=== PATIENT | female | born 1995 | race African-American/Black ===

== ENCOUNTER 2020-12-09 17:00 | Emergency (ER) | payer OTHER, SELFPAY ==
[2020-12-09 17:00] VITALS: BP 138/73; PULSE 91; RESP 14; TEMP 36.5; O2SAT 99; BMI 42.0
--- NOTE | 2020-12-09 17:10 | ED_ITS ---
HPI - General Adult General Chief complaint: Neuro Symptoms/Deficit Stated complaint: states neurological episode Time Seen by Provider: 12/09/20 17:04 Source: patient Mode of arrival: Ambulatory Limitations: no limitations History of Present Illness HPI narrative: Patient is a 25-year-old female. Has a history of migraines. Also has a history of intracranial hypertension. She is on a daily migraine medicine and also has an abortive medicine. She states that 2 episodes over the past 2 days she does not remember a period of time. States that yesterday's approximately 30 minutes in today was approximately 45 minutes. She was talking on the phone at the time. She does have a slight headache. She did take 1 of her abortive medicines prior to arrival. She is also talk with her neurologist who thinks that her symptoms are related to her migraines. She has never had any seizures in the past. Related Data Allergies Allergy/AdvReac Type Severity Reaction Status Date / Time No Known Drug Allergies Allergy Verified 12/09/20 17:08 Review of Systems Constitutional Constitutional: Denies fever(s) and Reports headache(s) ENT Ears, Nose, Mouth, and Throat: Denies vertigo, Denies dizziness and Reports headache(s) Cardiovascular Cardiovascular: Denies chest pain and Denies dyspnea Respiratory Respiratory: Denies dyspnea Gastrointestinal Gastrointestinal: Denies abdominal pain, Denies nausea and Denies vomiting Integumentary/Breasts Skin/Breast: Denies rash Neurologic Neurologic: Reports confusion, Denies vertigo, Denies dizziness, Reports headache(s) and Reports memory loss Comments: Memory problems Psychiatric Psychiatric: Reports confusion, Denies depression and Reports memory loss Hematologic/Lymphatic Hematologic/Lymphatic: Denies easy bleeding and Denies easy bruising Allergic/Immunologic Allergic/Immunologic: Denies urticaria Patient History Medical History Intracranial hypertension Migraines Social History Smoking Status: Unknown if ever smoked Smoking Status: Unknown if ever smoked alcohol intake frequency: holidays/special occasions only Substance Use Type: does not use Exam Initial Vital Signs Initial Vital Signs: Vital Signs Temperature 97.7 F 12/09/20 17:00 Pulse Rate 91 H 12/09/20 17:00 Respiratory Rate 14 12/09/20 17:00 Blood Pressure 138/73 12/09/20 17:00 Pulse Oximetry 99 12/09/20 17:00 Const General: cooperative and comfortable Limitations: mental status not altered HENMT Head: normal to inspection and normocephalic Resp Effort & Inspection: normal respiratory effort Auscultation: clear to auscultation bilaterally Cardio Rate: regular rate Rhythm: regular rhythm GI Inspection: non-distended Palpation: soft Skin Lesions: no lesions Rashes: no rashes Neuro General: patient alert, patient awake and patient oriented x3 Cranial Nerves: CN's II-XI intact bilaterally Cognition: normal cognition Speech: speech normal Gait: normal gait Sensory Exam: no sensory deficits noted Extrem General: normal to inspection and capillary refill normal Psych Appearance: grossly normal and well kempt Scores GCS [place] coma scale eye opening: Spontaneous [place] coma scale verbal response: Orientated [place] coma scale motor response: Obey commands [place] coma scale total score: 15 Course Orders Ordered: ED Orders 12/09/20 17:10 CT head/brain wo con Stat 12/09/20 17:11 Basic Metabolic Panel Stat Complete Blood Count AUTO DIFF Stat Ethanol (ETOH) Stat EKG-12 Lead Stat Vital Signs Vital signs: Vital Signs - 8 hr 12/09/20 17:00 Temperature 97.7 F Pulse Rate 91 H Respiratory Rate 14 Blood Pressure 138/73 Pulse Oximetry 99 Medical Decision Making Lab Data Result diagrams: 12/09/20 17:21 12/09/20 17:21 Labs: Lab Results 12/09/20 12/09/20 Range/Units 17:21 17:21 WBC 7.8 (4.5-11.0) X10^3/uL RBC 4.33 (4.0-5.2) X10^6/uL Hgb 13.8 (12.0-16.0) g/dL Hct 41.0 (36-46) % MCV 94.6 (80-100) fL MCH 31.8 (26-34) PG MCHC 33.6 (30-36) % RDW 13.7 (11.6-14.8) % Plt Count 324 (150-400) X10^3/uL Neut % (Auto) 66.5 (50-75) % Lymph % (Auto) 25.7 (25-40) % [place] % (Auto) 6.0 (3-14) % Eos % (Auto) 1.6 L (2-4) % Baso % (Auto) 0.2 (0-2) % Neut # (Auto) 5200 (2652-5142) /uL Lymph # (Auto) 2000 (6123-5318) /uL [place] # (Auto) 500 (0-900) /uL Eos # (Auto) 100 (0-450) /uL Baso # (Auto) 0 (0-100) /uL Sodium 141 (137-145) mmol/L Potassium 3.4 (3.4-5.1) mmol/L Chloride 109 H (98-107) mmol/L Carbon Dioxide 23 (22-32) mmol/L BUN 12 (7-17) mg/dL Creatinine 1.07 H (0.52-1.04) mg/dL Estimated GFR > 60.0 (>60) mL/min BUN/Creatinine Ratio 11.2 (6-22) Glucose 105 H (70-100) mg/dL Calcium 9.5 (8.4-10.2) mg/dL Ethyl Alcohol < 10 ( - 10) mg/dL Imaging Data CT scan - head: Radiologist's Impression: [place] [id number] Scan ReportSigned Patient: Mari Hummel KMR#: [id number]: 1995Acct:[id number]/Sex: 25 / FDate of Service: 12/09/20Loc: EDAccession Number: [id number] Procedure: CT head/brain wo con Ordering Provider: Sourav Ocampo D.O. PROCEDURE: CT HEAD/BRAIN WO CON INDICATIONS: Headache and memory loss TECHNIQUE: Noncontrast 4.5 mm thick angled axial sections acquired from the foramen magnum to the vertex, with coronal and sagittal reformats. For radiation dose reduction, the following was used: automated exposure control, adjustment of mA and/or kV according to patient size. COMPARISON: None. FINDINGS: Image quality: Excellent. CSF spaces: Basal cisterns are patent. No extra-axial fluid collections. Ventricles are normal in size and shape. Brain: No midline shift. No intracranial masses or hemorrhage. Marquez-white matter interface is normal. Skull and face: Calvarium and visualized facial bones are intact, without suspicious lesions. Sinuses: Visualized sinuses and mastoids are clear. IMPRESSION: Normal noncontrast head CT, without an imaging explanation found for the patient's presenting symptoms. Dictated by: Ben Yanes M.D. on 12/09/2020 at 16:35 Approved by: Ben Yanes M.D. on 12/09/2020 at 16:35 ECG Data Attestation: I personally reviewed and interpreted this ECG as follows: Prior ECG tracings: not available for review Interpretation: Sinus rhythm Ventricular rate is 73 Normal axis Normal QRS Normal QTC No ST T wave changes MDM Narrative Medical decision making narrative: She has a nonfocal neurologic exam. Patient states that she has contacted her neurologist on the around here to the emergency department and she stated that her neurologist thought that it was most likely a migraine. I have low suspicion for seizure. Low suspicion for increased intracranial pressure. We will hold on further workup for now. Will have her continue all of her medications as directed. Contact her neurologist for follow-up. She is given return precautions. She expressed understanding a greement. Discharge Plan Departure Patient Disposition: Home Clinical Impression: Headache Instructions: DI for Headache Activity Restrictions/Additional Instructions: Continue all of your medications as directed. Contact your neurologist for follow-up. Return to the emergency department for any new or worsening symptoms
--- NOTE | 2020-12-09 17:20 | PC.NURSE ---
patient states that she is having episodes of zoning out. She states that's that she goes blank and then has a hard time recalling what time it is. She states no LOC. She denies chest pain, SOB. She does state that she has a headache.
[2020-12-09 17:28] LABS: Add Manual Diff / Slide Review NO; Basophils Absolute Auto 0 /uL (0-100); Basophils Percent Auto 0.2 % (0-2); Eosinophils Absolute Auto 100 /uL (0-450); Eosinophils Percent Auto 1.6 % (2-4); Hemoglobin 13.8 g/dL (12.0-16.0); Lymphocytes Absolute Auto 2000 /uL (1100-4500); Lymphocytes Percent Auto 25.7 % (25-40); Mean Corpuscular HGB Conc 33.6 % (30-36); Mean Corpuscular Hemoglobin 31.8 PG (26-34); Mean Corpuscular Volume 94.6 fL (80-100); Monocytes Absolute Auto 500 /uL (0-900); Neutrophils Absolute Auto 5200 /uL (1500-7000); Neutrophils Percent Auto 66.5 % (50-75); Platelet Count 324 X10^3/uL (150-400); Red Blood Cell Count 4.33 X10^6/uL (4.0-5.2); Red Cell Distribution Width 13.7 % (11.6-14.8); White Blood Cell Count 7.8 X10^3/uL (4.5-11.0)
[2020-12-09 17:40] LABS: BUN Creatinine Ratio 11.2 (6-22); Blood Urea Nitrogen 12 mg/dL (7-17); Calcium 9.5 mg/dL (8.4-10.2); Carbon Dioxide 23 mmol/L (22-32); Chloride 109 mmol/L (98-107); Estimated Glomerular Filt Rate > 60.0 mL/min (>60); Ethanol (ETOH) < 10 mg/dL; Glucose 105 mg/dL (70-100); HEMOLYSIS < 15 (0-50); Potassium 3.4 mmol/L (3.4-5.1); Sodium 141 mmol/L (137-145)
[2020-12-09 18:28] VITALS: BP 134/86; PULSE 74; RESP 14; O2SAT 100
== END 2020-12-09 18:29 | disposition home or self-care (01) ==
PROVIDERS: Emergency Provider Emergency Medicine
DX: R51.9 Headache, unspecified (principal)
CPT/HCPCS: 36415; 70450; 80048; 80320; 85025; 93005; 99284

== ENCOUNTER 2021-01-07 10:46 | Emergency (ER) | payer OTHER, SELFPAY ==
[2021-01-07 11:05] VITALS: BP 129/78; PULSE 78; RESP 15; TEMP 36.8; O2SAT 100; BMI 41.1
[2021-01-07 11:32] LABS: Add Manual Diff / Slide Review NO; Basophils Absolute Auto 0 /uL (0-100); Basophils Percent Auto 0.3 % (0-2); Eosinophils Absolute Auto 100 /uL (0-450); Eosinophils Percent Auto 1.3 % (2-4); Hematocrit 40.3 % (36-46); Hemoglobin 13.1 g/dL (12.0-16.0); Lymphocytes Absolute Auto 2100 /uL (1100-4500); Mean Corpuscular HGB Conc 32.4 % (30-36); Mean Corpuscular Hemoglobin 30.9 PG (26-34); Mean Corpuscular Volume 95.3 fL (80-100); Monocytes Absolute Auto 500 /uL (0-900); Monocytes Percent Auto 5.4 % (3-14); Neutrophils Absolute Auto 5800 /uL (1500-7000); Platelet Count 336 X10^3/uL (150-400); Red Blood Cell Count 4.23 X10^6/uL (4.0-5.2); Red Cell Distribution Width 13.7 % (11.6-14.8); White Blood Cell Count 8.5 X10^3/uL (4.5-11.0)
[2021-01-07 11:37] LABS: Prothrombin Time 11.9 SECONDS (10.1-12.7)
[2021-01-07 11:40] LABS: Alanine Aminotransferase 21 IU/L (<35); Albumin 4.4 g/dL (3.5-5.0); Albumin Globulin Ratio 1.1 (1.0-2.8); Alkaline Phosphatase 67 U/L (38-126); Aspartate Aminotransferase 29 IU/L (14-36); BUN Creatinine Ratio 12.3 (6-22); Bilirubin Total 0.2 mg/dL (0.2-1.3); Blood Urea Nitrogen 14 mg/dL (7-17); Calcium 9.7 mg/dL (8.4-10.2); Carbon Dioxide 20 mmol/L (22-32); Chloride 110 mmol/L (98-107); Estimated Glomerular Filt Rate 57.2 mL/min (>60); Globulin 3.9 g/dL (1.7-4.1); Glucose 89 mg/dL (70-100); HEMOLYSIS 30 (0-50); PTT Partial Thromboplastin Tim 42 SECONDS (26.4-36.2); Potassium 4.1 mmol/L (3.4-5.1); Sodium 140 mmol/L (137-145); Total Protein 8.3 g/dL (6.3-8.2)
--- NOTE | 2021-01-07 12:03 | PC.NURSE ---
patient has a history of rectal bleeding. She stated that she's been seeing blood in her stool since last . She said that the amount of blood was not concerning until she noticed dark blood with associated abd pain this morning.
--- NOTE | 2021-01-07 12:34 | ED.GIBLEED ---
HPI - GI Bleed General Chief complaint: GI Bleed Stated complaint: Rectal bleeding Time Seen by Provider: 01/07/21 12:33 Source: patient Mode of arrival: Ambulatory Limitations: no limitations History of Present Illness HPI Narrative: 25-year-old woman with no significant medical history presents with lower abdominal cramping and bright red blood per rectum. She finished a usual menstrual cycle on Sunday the . Over the weekend she was having some vaginal spotting and noticed increasing vaginal pot in the right vaginal introitus area. She was seen by her historical manuscripts curator on Sunday the . On the she had noted some bright red blood associated with bowel movements and continued pelvic cramping. Her historical manuscripts curator felt that this was more GI in nature and has scheduled a pelvic ultrasound for next weekt. She describes no fevers, cough, chills she is not currently . The cramping that she is experiencing is intermittent does not seem to be precipitated by anything is in the pelvis. She has not noticed any dysuria or hematuria. No change to vaginal discharge or new sexual partners to suggest sexually transmitted infection. Related Data Allergies Allergy/AdvReac Type Severity Reaction Status Date / Time No Known Drug Allergies Allergy Verified 01/07/21 11:08 Review of Systems Review of Systems Narrative: Remainder of complete review of systems is otherwise unremarkable except for that included in the HPI. Patient History Medical History Intracranial hypertension Migraines Social History Smoking Status: Unknown if ever smoked Smoking Status: Unknown if ever smoked alcohol intake frequency: holidays/special occasions only Substance Use Type: does not use Exam Narrative Exam Narrative: General: Healthy appearing, in no acute distress. Able to give a complete and coherent history. Well-nourished well-developed HEENT: Moist mucous membranes, normal sclera with reactive pupils, Respiratory: Lungs are clear to auscultation, no wheezing no rales no rhonchi. Full and symmetrical air movement Cardiac: Regular rate and rhythm no murmurs no bruits Abdomen: Soft, nontender, good bowel tones, no flank pain Skin: Warm and dry, no rashes Neurologic: Grossly neurologically intact with no obvious asymmetries or abnormalities Extremities: No trauma, well perfused Psych: Cooperative, appropriate insight and affect Pelvic exam; labia majora are within normal limits no evidence of Bartholin duct cyst. There is some tenderness on the left posterior portion of the introitus. Gentle rectal exam is performed she does have a small internal hemorrhoid with a small amount of bright red blood on my glove when the globe was removed. She is tender on the left lateral wall of the rectum. There is no tenderness when palpating the perineal body or gluteus. No discharge and no skin changes to the genital skin. Initial Vital Signs Initial Vital Signs: Vital Signs Temperature 98.2 F 01/07/21 11:05 Pulse Rate 78 01/07/21 11:05 Respiratory Rate 15 01/07/21 11:05 Blood Pressure 129/78 01/07/21 11:05 Pulse Oximetry 100 01/07/21 11:05 Course Orders Ordered: ED Orders 01/07/21 11:20 Complete Blood Count AUTO DIFF Stat Comprehensive Metabolic Panel Stat Partial Thromboplastin Time Stat Prothrombin Time INR Stat 01/07/21 13:36 CT abdomen pelvis w con Stat Vital Signs Vital signs: Vital Signs - 8 hr 01/07/21 11:05 01/07/21 15:59 Temperature 98.2 F Pulse Rate 78 74 Respiratory Rate 15 Blood Pressure 129/78 120/76 Pulse Oximetry 100 99 MDM - GI Bleed Medical Records Attestation: I reviewed the patient's medical records. Lab Data Attestation: I reviewed the patient's lab results. Result diagrams: 01/07/21 11:20 01/07/21 11:20 Labs: Lab Results 01/07/21 01/07/21 01/07/21 Range/Units 11:20 11:20 11:20 WBC 8.5 (4.5-11.0) X10^3/uL RBC 4.23 (4.0-5.2) X10^6/uL Hgb 13.1 (12.0-16.0) g/dL Hct 40.3 (36-46) % MCV 95.3 (80-100) fL MCH 30.9 (26-34) PG MCHC 32.4 (30-36) % RDW 13.7 (11.6-14.8) % Plt Count 336 (150-400) X10^3/uL Neut % (Auto) 68.0 (50-75) % Lymph % (Auto) 25.0 (25-40) % [place] % (Auto) 5.4 (3-14) % Eos % (Auto) 1.3 L (2-4) % Baso % (Auto) 0.3 (0-2) % Neut # (Auto) 5800 (1462-1544) /uL Lymph # (Auto) 2100 (2890-9997) /uL [place] # (Auto) 500 (0-900) /uL Eos # (Auto) 100 (0-450) /uL Baso # (Auto) 0 (0-100) /uL PT 11.9 (10.1-12.7) SECONDS INR 1.0 (0.9-1.3) APTT 42 H (26.4-36.2) SECONDS Sodium 140 (137-145) mmol/L Potassium 4.1 (3.4-5.1) mmol/L Chloride 110 H (98-107) mmol/L Carbon Dioxide 20 L (22-32) mmol/L BUN 14 (7-17) mg/dL Creatinine 1.14 H (0.52-1.04) mg/dL Estimated GFR 57.2 L (>60) mL/min BUN/Creatinine Ratio 12.3 (6-22) Glucose 89 (70-100) mg/dL Calcium 9.7 (8.4-10.2) mg/dL Total Bilirubin 0.2 (0.2-1.3) mg/dL AST 29 (14-36) IU/L ALT 21 (<35) IU/L Alkaline Phosphatase 67 (38-126) U/L Total Protein 8.3 H (6.3-8.2) g/dL Albumin 4.4 (3.5-5.0) g/dL Globulin 3.9 (1.7-4.1) g/dL Albumin/Globulin Ratio 1.1 (1.0-2.8) Point of Care Testing Test Results Negative Stool Occult Blood Positive Urine Dip Bedside Urine Glucose Negative Bedside Urine Bilirubin - Negative Bedside Urine Ketone - Negative Urine Specific [place] 1.020 Bedside Urine Occult Blood - Negative Bedside Urine pH 6.5 Bedside Urine Protein - Negative Bedside Urine Urobilinogen - Negative Bedside Urine Nitrite - Negative Bedside Urine Leukocytes - Negative Esterase Imaging Data CT scan - abdomen/pelvis: Radiologist's Impression: FINDINGS: Image quality: Excellent. ABDOMEN: Lung bases: Lung bases are clear. Heart size is normal. Solid organs: Liver is normal in size and enhancement. Gallbladder appears normal. Biliary system is non dilated. Pancreas enhances normally. Spleen is normal in size and enhancement. No adrenal nodules. Kidneys demonstrate normal size and enhancement, without hydronephrosis. Peritoneum and bowel: Bowel loops demonstrate normal wall thickness and caliber. No free fluid or air. Nodes and vessels: No retroperitoneal or mesenteric adenopathy by size criteria. Aorta and inferior vena cava are normal in size. Miscellaneous: No ventral hernias. PELVIS: Genitourinary: Bladder wall thickness is normal. The uterus is retroverted, and what appear to be normal ovaries are seen at each adnexa with a probable 1.9 cm cyst on the right. Miscellaneous: No inguinal hernias or adenopathy. A normal appendix is found at and to the left of the right lower quadrant. No area of diverticulitis or colitis is seen. Bones: No suspicious bony lesions. No vertebral body compression fractures. IMPRESSION: Normal appendix found, no diverticulitis or colitis identified. Source of current symptomatology is not seen. 1.9 cm right ovarian cyst incidentally noted in the setting of a retroverted uterus. No adnexal pathology or uterine abnormality is suspected. Dictated by: Jovanni Brown M.D. on 01/07/2021 at 14:49 MDM Narrative Medical decision making narrative: 25-year-old woman with low pelvic and abdominal cramping getting persistently worse. Intermittent vaginal bleeding and some bright red blood with stooling. Physical exam does not suggest perirectal abscess, herpetic outbreak, ectopic , pelvic inflammatory disease, appendicitis. CT scan is obtained to help clarify diagnosis. She has a small ovarian cyst that may be causing part of the problem however looks fairly benign in comparison to her overall complaints. At this point there is certainly no life-threatening abnormalities or infection appreciated. In reviewing the CT scan independently she does have a moderate of stool and air throughout the entire colon. Will suggest that she try some magnesium citrate and see if cleaning her bowel helps with her overall pain and cramping. The rectal bleeding is very likely related to internal hemorrhoids and certainly is not causing any change to hematocrit or hemodynamic instability. Discharge Plan Departure Patient Disposition: Home Clinical Impression: Pelvic pain Hemorrhoids Qualifiers: Hemorrhoid type: unspecified Qualified Code(s): K64.9 - Unspecified hemorrhoids Instructions: DI for Abdominal Pain-Adult Activity Restrictions/Additional Instructions: Thank you for coming in today. There is no evidence of acute infection, masses or tumors in your abdomen to explain the pain that you are experiencing. You do have a small ovarian cyst that likely is more physiologic (related to the fact that you are mid cycle) than anything that is pathologic. There is no appendicitis, no evidence of ectopic , no kidney stones or kidney infection. In looking at this study it does appear that you do have quite a bit of stool throughout your colon and it may be that using a bottle of magnesium citrate to completely cleansed her bowels will help alleviate some of the recurrent pain air experiencing. If you have worsening problems or symptoms, please feel free to return to the ER Referrals: Dione Carpenter MD [Primary Care Provider] -
--- NOTE | 2021-01-07 13:36 | DI.CT.S_ITS ---
PROCEDURE: CT ABDOMEN PELVIS W CON INDICATIONS: pelvic pain, RLQ cramping, rectal bleeding TECHNIQUE: After the administration of intravenous contrast, 5 mm thick sections acquired from the diaphragm to the symphysis. 5 mm coronal and sagittal reformats were acquired. For radiation dose reduction, the following was used: automated exposure control, adjustment of mA and/or kV according to patient size. COMPARISON: None. FINDINGS: Image quality: Excellent. ABDOMEN: Lung bases: Lung bases are clear. Heart size is normal. Solid organs: Liver is normal in size and enhancement. Gallbladder appears normal. Biliary system is non dilated. Pancreas enhances normally. Spleen is normal in size and enhancement. No adrenal nodules. Kidneys demonstrate normal size and enhancement, without hydronephrosis. Peritoneum and bowel: Bowel loops demonstrate normal wall thickness and caliber. No free fluid or air. Nodes and vessels: No retroperitoneal or mesenteric adenopathy by size criteria. Aorta and inferior vena cava are normal in size. Miscellaneous: No ventral hernias. PELVIS: Genitourinary: Bladder wall thickness is normal. The uterus is retroverted, and what appear to be normal ovaries are seen at each adnexa with a probable 1.9 cm cyst on the right. Miscellaneous: No inguinal hernias or adenopathy. A normal appendix is found at and to the left of the right lower quadrant. No area of diverticulitis or colitis is seen. Bones: No suspicious bony lesions. No vertebral body compression fractures. IMPRESSION: Normal appendix found, no diverticulitis or colitis identified. Source of current symptomatology is not seen. 1.9 cm right ovarian cyst incidentally noted in the setting of a retroverted uterus. No adnexal pathology or uterine abnormality is suspected. Dictated by: Jovanni Brown M.D. on 01/07/2021 at 14:49 Approved by: Jovanni Brown M.D. on 01/07/2021 at 14:52
[2021-01-07 15:59] VITALS: BP 120/76; PULSE 74; O2SAT 99
== END 2021-01-07 16:00 | disposition home or self-care (01) ==
PROVIDERS: Emergency Provider Emergency Medicine; PCP Family Medicine
DX: R10.2 Pelvic and perineal pain (principal); K64.9 Unspecified hemorrhoids
CPT/HCPCS: 36415; 74177; 80053; 81003; 81025; 82272; 85025; 85610; 85730; 99284; Q9967

== ENCOUNTER 2021-01-13 10:06 | Emergency (ER) | payer OTHER, SELFPAY ==
[2021-01-13] VITALS (15 sets, daily range): BP systolic 89–138; BP diastolic 53–76; PULSE 65–83; RESP 12–28; TEMP 37.1; O2SAT 94–100; BMI 43.9
[2021-01-13] MEDS: SODIUM CHLORIDE 0.9% 1,000 ML 1000 ML IV (10:15)
--- NOTE | 2021-01-13 10:16 | ED_ITS ---
HPI - General Adult General Chief complaint: Syncope Stated complaint: syncope Time Seen by Provider: 01/13/21 10:08 Source: patient Mode of arrival: EMS Limitations: no limitations History of Present Illness HPI narrative: Patient is a 25-year-old female. She does have a history of intracranial hypertension for which she sees Neurology. She states that her neurologist told her that she was in ?remission ?of this. She is still on Diamox. She also has a history of migraines. She is here for evaluation of epi sodes that occurred this morning. She states that while at work she was walking around trying to muster her coworkers when she became somewhat lightheaded. She states she she did not pass out at the time but did have to sit down. This episode seem to have resolved. It was not until sometime later when again she was standing talking with some coworkers when she had a fairly sudden onset of becoming very lightheaded and apparently did pass out. She states she did not hit her head. She was able to grab on to a co-worker in the wall. The next thing that she remembers were individual standing around her. She does not remember any other associated symptoms to include chest pain or palpitations or shortness of breath at the time. She is currently having a slight frontal headache. Related Data Allergies Allergy/AdvReac Type Severity Reaction Status Date / Time No Known Drug Allergies Allergy Verified 01/13/21 09:55 Review of Systems Constitutional Constitutional: Reports fatigue, Denies fever(s) and Reports headache(s) Eyes Eyes: Denies change in vision ENT Ears, Nose, Mouth, and Throat: Reports headache(s) and Denies sore throat Cardiovascular Cardiovascular: Denies chest pain and Reports syncope Respiratory Respiratory: Denies pain with cough Gastrointestinal Gastrointestinal: Denies abdominal pain Genitourinary Genitourinary: Denies dysuria Genitourinary: Denies dysuria Integumentary/Breasts Skin/Breast: Denies rash Neurologic Neurologic: Denies confusion, Reports syncope and Reports headache(s) Psychiatric Psychiatric: Denies confusion Endocrine Endocrine: Reports fatigue Hematologic/Lymphatic On Anticoagulants: No Patient History Medical History Intracranial hypertension Migraines Social History Smoking Status: Never smoker Smoking Status: Unknown if ever smoked alcohol intake frequency: holidays/special occasions only Substance Use Type: does not use Exam Initial Vital Signs Initial Vital Signs: Vital Signs Pulse Rate 83 01/13/21 10:08 Pulse Oximetry 94 01/13/21 10:08 Const General: cooperative and comfortable Limitations: mental status not altered HENMT Head: normal to inspection and normocephalic Ears: hearing grossly normal bilaterally Eyes General: appearance normal, both eyes and all related structures Pupils: PERRL EOM: EOM intact bilaterally Resp Effort & Inspection: normal respiratory effort Auscultation: clear to auscultation bilaterally Cardio Rate: regular rate Rhythm: regular rhythm GI Inspection: non-distended Palpation: soft Skin Lesions: no lesions Rashes: no rashes Neuro General: patient alert, patient awake and patient oriented x3 Cranial Nerves: No CN's II-XI intact bilaterally (Decreased sensation to light touch right-sided face) Cognition: normal cognition Speech: speech normal Extrem General: normal to inspection and capillary refill normal Psych Appearance: grossly normal and well kempt Scores GCS [place] coma scale eye opening: Spontaneous [place] coma scale verbal response: Orientated [place] coma scale motor response: Obey commands [place] coma scale total score: 15 Course Orders Ordered: ED Orders 01/13/21 10:10 EKG-12 Lead Stat 01/13/21 10:29 Complete Blood Count AUTO DIFF Stat Comprehensive Metabolic Panel Stat Lipase Stat Test Serum,Qual Stat 01/13/21 10:30 Urine Culture Stat Urine Microscopic Stat 01/13/21 11:54 CT head/brain wo con Stat Discontinued Medications Sodium Chloride (Normal Saline 0.9%) 1,000 mls @ 1,000 mls/hr IV BOLUS ONE Stop: 01/13/21 11:09 Last Infusion: 01/13/21 12:01 Dose: 0 mls/hr Documented by: Admin: 01/13/21 10:15 Dose: 1,000 mls/hr Documented by: MARGARITO Vital Signs Vital signs: Vital Signs - 8 hr 01/13/21 10:08 01/13/21 10:09 01/13/21 10:12 Temperature Pulse Rate 83 79 67 Pulse Rate [Orthostatic Lying] Pulse Rate [Orthostatic Sitting] Pulse Rate [Orthostatic Standing] Respiratory Rate 19 Blood Pressure 89/53 L 110/66 Blood Pressure [Orthostatic Lying] Blood Pressure [Orthostatic Sitting] Blood Pressure [Orthostatic Standing] Pulse Oximetry 94 100 100 01/13/21 10:15 01/13/21 10:16 01/13/21 10:17 Temperature 98.8 F Pulse Rate 66 76 74 Pulse Rate [Orthostatic Lying] Pulse Rate [Orthostatic Sitting] Pulse Rate [Orthostatic Standing] Respiratory Rate 23 20 18 Blood Pressure 126/76 128/63 110/66 Blood Pressure [Orthostatic Lying] Blood Pressure [Orthostatic Sitting] Blood Pressure [Orthostatic Standing] Pulse Oximetry 99 99 100 01/13/21 10:23 01/13/21 10:24 01/13/21 10:30 Temperature Pulse Rate 75 74 Pulse Rate [Orthostatic Lying] 68 Pulse Rate [Orthostatic Sitting] 66 Pulse Rate [Orthostatic Standing] 78 Respiratory Rate 19 28 H Blood Pressure 138/73 129/70 Blood Pressure [Orthostatic Lying] 110/66 Blood Pressure [Orthostatic Sitting] 126/76 Blood Pressure [Orthostatic Standing] 128/63 Pulse Oximetry 99 100 01/13/21 11:00 01/13/21 11:30 01/13/21 12:00 Temperature Pulse Rate 71 74 Pulse Rate [Orthostatic Lying] Pulse Rate [Orthostatic Sitting] Pulse Rate [Orthostatic Standing] Respiratory Rate 21 23 Blood Pressure 123/67 112/76 Blood Pressure [Orthostatic Lying] Blood Pressure [Orthostatic Sitting] Blood Pressure [Orthostatic Standing] Pulse Oximetry 100 100 98 01/13/21 12:08 01/13/21 12:30 01/13/21 13:00 Temperature Pulse Rate 70 65 71 Pulse Rate [Orthostatic Lying] Pulse Rate [Orthostatic Sitting] Pulse Rate [Orthostatic Standing] Respiratory Rate 12 21 23 Blood Pressure 119/73 129/73 120/74 Blood Pressure [Orthostatic Lying] Blood Pressure [Orthostatic Sitting] Blood Pressure [Orthostatic Standing] Pulse Oximetry 98 99 100 Medical Decision Making Lab Data Lab results reviewed: Yes I reviewed the patient's lab results. Result diagrams: 01/13/21 10:29 01/13/21 10:29 Labs: Lab Results 01/13/21 01/13/21 01/13/21 Range/Units 10:29 10:29 10:29 WBC 7.2 (4.5-11.0) X10^3/uL RBC 4.28 (4.0-5.2) X10^6/uL Hgb 13.4 (12.0-16.0) g/dL Hct 40.3 (36-46) % MCV 94.0 (80-100) fL MCH 31.3 (26-34) PG MCHC 33.3 (30-36) % RDW 13.4 (11.6-14.8) % Plt Count 336 (150-400) X10^3/uL Neut % (Auto) 59.2 (50-75) % Lymph % (Auto) 32.4 (25-40) % [place] % (Auto) 6.2 (3-14) % Eos % (Auto) 1.9 L (2-4) % Baso % (Auto) 0.3 (0-2) % Neut # (Auto) 4300 (8305-6113) /uL Lymph # (Auto) 2300 (7264-6966) /uL [place] # (Auto) 400 (0-900) /uL Eos # (Auto) 100 (0-450) /uL Baso # (Auto) 0 (0-100) /uL Sodium 139 (137-145) mmol/L Potassium 3.6 (3.4-5.1) mmol/L Chloride 109 H (98-107) mmol/L Carbon Dioxide 21 L (22-32) mmol/L BUN 9 (7-17) mg/dL Creatinine 1.05 H (0.52-1.04) mg/dL Estimated GFR > 60.0 (>60) mL/min BUN/Creatinine Ratio 8.6 (6-22) Glucose 91 (70-100) mg/dL Calcium 9.4 (8.4-10.2) mg/dL Total Bilirubin 0.2 (0.2-1.3) mg/dL AST 28 (14-36) IU/L ALT 18 (<35) IU/L Alkaline Phosphatase 66 (38-126) U/L Total Protein 8.1 (6.3-8.2) g/dL Albumin 4.4 (3.5-5.0) g/dL Globulin 3.7 (1.7-4.1) g/dL Albumin/Globulin Ratio 1.2 (1.0-2.8) Lipase 60 (23-300) U/L Serum , Qual Negative (Negative) Urine RBC (0-5/HPF) Urine WBC (0-5/HPF) Ur Squamous Epith Cells (0-5/HPF) Urine Bacteria (None) Ur Culture Indicated? 01/13/21 Range/Units 10:30 WBC (4.5-11.0) X10^3/uL RBC (4.0-5.2) X10^6/uL Hgb (12.0-16.0) g/dL Hct (36-46) % MCV (80-100) fL MCH (26-34) PG MCHC (30-36) % RDW (11.6-14.8) % Plt Count (150-400) X10^3/uL Neut % (Auto) (50-75) % Lymph % (Auto) (25-40) % [place] % (Auto) (3-14) % Eos % (Auto) (2-4) % Baso % (Auto) (0-2) % Neut # (Auto) (8232-0112) /uL Lymph # (Auto) (8150-8264) /uL [place] # (Auto) (0-900) /uL Eos # (Auto) (0-450) /uL Baso # (Auto) (0-100) /uL Sodium (137-145) mmol/L Potassium (3.4-5.1) mmol/L Chloride (98-107) mmol/L Carbon Dioxide (22-32) mmol/L BUN (7-17) mg/dL Creatinine (0.52-1.04) mg/dL Estimated GFR (>60) mL/min BUN/Creatinine Ratio (6-22) Glucose (70-100) mg/dL Calcium (8.4-10.2) mg/dL Total Bilirubin (0.2-1.3) mg/dL AST (14-36) IU/L ALT (<35) IU/L Alkaline Phosphatase (38-126) U/L Total Protein (6.3-8.2) g/dL Albumin (3.5-5.0) g/dL Globulin (1.7-4.1) g/dL Albumin/Globulin Ratio (1.0-2.8) Lipase (23-300) U/L Serum , Qual (Negative) Urine RBC None seen (0-5/HPF) Urine WBC 1-5/hpf (0-5/HPF) Ur Squamous Epith Cells 1-5 /hpf (0-5/HPF) Urine Bacteria Moderate (10-30) H (None) Ur Culture Indicated? Specimen cultured Point of Care Testing Test Results Negative Urine Dip Bedside Urine Glucose Negative Bedside Urine Bilirubin - Negative Bedside Urine Ketone - Negative Urine Specific [place] 1.025 Bedside Urine Occult Blood - Negative Bedside Urine pH 6 Bedside Urine Protein - Negative Bedside Urine Urobilinogen - Negative Bedside Urine Nitrite - Negative Bedside Urine Leukocytes + 70 Esterase Point of care testing: Point of Care Testing Test Results Negative Urine Dip Bedside Urine Glucose Negative Bedside Urine Bilirubin - Negative Bedside Urine Ketone - Negative Urine Specific [place] 1.025 Bedside Urine Occult Blood - Negative Bedside Urine pH 6 Bedside Urine Protein - Negative Bedside Urine Urobilinogen - Negative Bedside Urine Nitrite - Negative Bedside Urine Leukocytes + [address] scan - head: Radiologist's Impression: [address] [id number] Scan ReportSigned Patient: Mari Hummel KMR#: [id number]: 1995Acct:[id number]/Sex: 25 / FDate of Service: 01/13/21Loc: EDAccession Number: [id number] Procedure: CT head/brain wo con Ordering Provider: Sourav Ocampo D.O. PROCEDURE: CT HEAD/BRAIN WO CON INDICATIONS: Syncope, history of intracranial hypertension TECHNIQUE: Noncontrast 4.5 mm thick angled axial sections acquired from the foramen magnum to the vertex, with coronal and sagittal reformats. For radiation dose reduction, the following was used: automated exposure control, adjustment of mA and/or kV according to patient size. COMPARISON: Located Within [facility], CT, CT HEAD/BRAIN WO CON, 12/09/2020, 17:13. FINDINGS: Image quality: Excellent. CSF spaces: Basal cisterns are patent. No extra-axial fluid collections. Ventricles are normal in size and shape. Brain: No midline shift. No intracranial masses or hemorrhage. Marquez-white matter interface is normal. Skull and face: Calvarium and visualized facial bones are intact, without suspicious lesions. Sinuses: Visualized sinuses and mastoids are clear. IMPRESSION: Normal noncontrast head CT. No acute intracranial hemorrhage is seen. Dictated by: Ben Yanes M.D. on 01/13/2021 at 11:09 Approved by: Ben Yanes M.D. on 01/13/2021 at 11:09 ECG Data Attestation: I personally reviewed and interpreted this ECG as follows: Prior ECG tracings: not available for review Interpretation: Sinus bradycardia Ventricular rate of 58 Sinus arrhythmia Normal QRS Normal QTC No ST T wave changes MDM Narrative Medical decision making narrative: Patient has a nonfocal neurologic exam. EKG is bradycardic otherwise unremarkable. Does have a history of intracranial hypertension however CT scan today is unremarkable. She improved during her time here in the emergency department. Her test is negative. She does have bacteria in her urine however we will wait for the urine culture to resolve before treating with any antibiotics. She is afebrile. I have low suspicion that her symptoms today are seizure. They do sound more like a vasovagal issue. Will discharge home. She was given return precautions and follow-up instructions. She expressed understanding and agreement. Discharge Plan Departure Patient Disposition: Home Clinical Impression: Syncope Instructions: Fainting Activity Restrictions/Additional Instructions: Recommend that you continue to increase your fluid intake. You have no restrictions on your activities. Contact your medical department for follow-up. Return to the emergency department for any new or worsening symptoms Referrals: Dione Carpenter MD [Primary Care Provider] -
--- NOTE | 2021-01-13 10:25 | PC.NURSE ---
vertigo with movement from lying to sitting and standing, dizzy and vertigo increased with standing upright
[2021-01-13 10:38] LABS: RBC Urine None Seen (0-5/HPF)
[2021-01-13 10:39] LABS: Add Manual Diff / Slide Review NO; Basophils Absolute Auto 0 /uL (0-100); Basophils Percent Auto 0.3 % (0-2); Eosinophils Absolute Auto 100 /uL (0-450); Eosinophils Percent Auto 1.9 % (2-4); Hematocrit 40.3 % (36-46); Hemoglobin 13.4 g/dL (12.0-16.0); Lymphocytes Absolute Auto 2300 /uL (1100-4500); Lymphocytes Percent Auto 32.4 % (25-40); Mean Corpuscular HGB Conc 33.3 % (30-36); Mean Corpuscular Hemoglobin 31.3 PG (26-34); Monocytes Absolute Auto 400 /uL (0-900); Monocytes Percent Auto 6.2 % (3-14); Neutrophils Absolute Auto 4300 /uL (1500-7000); Neutrophils Percent Auto 59.2 % (50-75); Platelet Count 336 X10^3/uL (150-400); Red Blood Cell Count 4.28 X10^6/uL (4.0-5.2); Red Cell Distribution Width 13.4 % (11.6-14.8); White Blood Cell Count 7.2 X10^3/uL (4.5-11.0)
[2021-01-13 10:51] LABS: Alanine Aminotransferase 18 IU/L (<35); Albumin 4.4 g/dL (3.5-5.0); Albumin Globulin Ratio 1.2 (1.0-2.8); Alkaline Phosphatase 66 U/L (38-126); Aspartate Aminotransferase 28 IU/L (14-36); BUN Creatinine Ratio 8.6 (6-22); Bilirubin Total 0.2 mg/dL (0.2-1.3); Blood Urea Nitrogen 9 mg/dL (7-17); Calcium 9.4 mg/dL (8.4-10.2); Carbon Dioxide 21 mmol/L (22-32); Chloride 109 mmol/L (98-107); Estimated Glomerular Filt Rate > 60.0 mL/min (>60); Globulin 3.7 g/dL (1.7-4.1); Glucose 91 mg/dL (70-100); HEMOLYSIS < 15 (0-50); Lipase 60 U/L (23-300); Potassium 3.6 mmol/L (3.4-5.1); Sodium 139 mmol/L (137-145); Total Protein 8.1 g/dL (6.3-8.2)
[2021-01-13 10:55] LABS: Bacteria Urine Moderate (10-30); Culture Indicated Urine Specimen Cultured; Squamous Epithelial Cell Urine 1-5 /HPF (0-5/HPF); WBC Urine 1-5/HPF (0-5/HPF)
[2021-01-13 11:01] LABS: Pregnancy Test Serum,Qual Negative (Negative)
--- NOTE | 2021-01-13 11:54 | DI.CT.S_ITS ---
PROCEDURE: CT HEAD/BRAIN WO CON INDICATIONS: Syncope, history of intracranial hypertension TECHNIQUE: Noncontrast 4.5 mm thick angled axial sections acquired from the foramen magnum to the vertex, with coronal and sagittal reformats. For radiation dose reduction, the following was used: automated exposure control, adjustment of mA and/or kV according to patient size. COMPARISON: [facility], CT, CT HEAD/BRAIN WO CON, 12/09/2020, 17:13. FINDINGS: Image quality: Excellent. CSF spaces: Basal cisterns are patent. No extra-axial fluid collections. Ventricles are normal in size and shape. Brain: No midline shift. No intracranial masses or hemorrhage. Marquez-white matter interface is normal. Skull and face: Calvarium and visualized facial bones are intact, without suspicious lesions. Sinuses: Visualized sinuses and mastoids are clear. IMPRESSION: Normal noncontrast head CT. No acute intracranial hemorrhage is seen. Dictated by: Ben Yanes M.D. on 01/13/2021 at 11:09 Approved by: Ben Yanes M.D. on 01/13/2021 at 11:09
--- NOTE | 2021-01-13 13:24 | PC.NURSE ---
Pt ambulated off monitor per MD order, reports feeling lightheaded but this is a normal thing for me, minor pain to back of neck. Ambulated independently to bathroom, no issues, reports feeling safe to go home.
== END 2021-01-13 13:45 | disposition home or self-care (01) ==
PROVIDERS: Emergency Provider Emergency Medicine; PCP Family Medicine
DX: R55 Syncope and collapse (principal); R51.9 Headache, unspecified
CPT/HCPCS: 36415; 70450; 80053; 81003; 81015; 81025; 83690; 84703; 85025; 87086; 93005; 96360; 96361; 99284

== ENCOUNTER 2021-02-02 22:36 | Emergency (ER) | payer OTHER, SELFPAY ==
[2021-02-02 22:46] VITALS: BP 129/83; PULSE 85; RESP 18; TEMP 36.6; O2SAT 98; BMI 41.1
--- NOTE | 2021-02-02 23:43 | ED.ANXIETY ---
HPI - Anxiety General Chief Complaint: Anxiety Stated Complaint: anxiety, dizziness, N/V Time Seen by Provider: 02/02/21 23:29 Source: patient and other (friend at bedside.) Mode of arrival: Ambulatory Limitations: no limitations History of Present Illness HPI narrative: This is a 25-year-old female comes emergency department complaint of anxiety. Patient states she has chronic issues with anxiety she thinks all her symptoms are related her anxiety but she did contact the nurse hotline because she has had poor appetite some nausea and occasional vomiting. She self complaining of little bit of left lower quadrant abdominal pain which she states has been there for couple days. She denies any fevers or chills. No active chest similar shortness of breath. She denies any major changes with bowel movements currently. She has not any dysuria, urgency or frequency. She denies any vaginal bleeding or discharge. 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 Patient denies any prior surgeries. No allergies to medications. Related Data Previous Rx's Medication Instructions Recorded hydroxyzine HCl 25 mg PO QID PRN #14 tab 02/03/21 Allergies Allergy/AdvReac Type Severity Reaction Status Date / Time No Known Drug Allergies Allergy Verified 01/13/21 09:55 Review of Systems Review of Systems ROS Unobtainable: All systems reviewed & are unremarkable except as noted in HPI and below Patient History Medical History Intracranial hypertension Migraines Social History Smoking Status: Never smoker Smoking Status: Never smoker alcohol intake frequency: holidays/special occasions only Substance Use Type: does not use Exam Narrative Exam Narrative: GENERAL: Alert and oriented x three, obese female in mild distress. HEENT: Head normocephalic, atraumatic, EOMI, pupils reactive, face symmetric, moist mucous membranes NECK: Supple, full range of motion CARDIOVASCULAR: Regular rate and rhythm without murmurs, rubs or gallops. RESPIRATORY: Breath sounds equal bilaterally, no wheezes rales or rhonchi. ABDOMEN: Soft, positive for left upper and lower quadrant tenderness. Normoactive bowel sounds all 4 quadrants. No guarding or rebound, rigidity, no mass : No CVA tenderness EXTREMITIES: Normal range of motion, no clubbing or edema. Neurovascularly intact NEUROLOGICAL: Cranial nerves II through XII grossly intact. Moving all extremities SKIN: Warm, dry, no petechiae, no rashes or lesions. PSYCH: positive for anxiety. Initial Vital Signs Initial Vital Signs: Vital Signs Temperature 98 F 02/02/21 22:46 Pulse Rate 85 02/02/21 22:46 Respiratory Rate 18 02/02/21 22:46 Blood Pressure 129/83 02/02/21 22:46 Pulse Oximetry 98 02/02/21 22:46 Course Orders Ordered: ED Orders 02/03/21 00:17 Complete Blood Count AUTO DIFF Stat Comprehensive Metabolic Panel Stat Lipase Stat Discontinued Medications Alprazolam (Alprazolam 0.5 Mg Tablet) 0.5 mg PO NOW ONE Stop: 02/03/21 00:05 Last Admin: 02/03/21 00:17 Dose: 0.5 mg Documented by: KELLY Sodium Chloride (Normal Saline 0.9%) 1,000 mls @ 1,000 mls/hr IV BOLUS ONE Stop: 02/03/21 01:03 Last Infusion: 02/03/21 02:08 Dose: 0 mls/hr Documented by: ISMAELROSIMRAN Admin: 02/03/21 00:17 Dose: 1,000 mls/hr Documented by: KELLY Ondansetron HCl (Ondansetron 4 Mg/2 Ml Inj) 4 mg IV NOW ONE Stop: 02/03/21 00:05 Last Admin: 02/03/21 00:17 Dose: 4 mg Documented by: KELLY Reevaluation(s) Reevaluation #1: Patient is feeling improved. Was able to give a urine sample which is negative. Patient would like to return home and is feeling better. Reviewed patient's labs and findings today. She is reluctant try any benzodiazepines at home we discussed trying hydroxyzine instead and see if this helps her in the acute phase. She just established with a psychiatrist yesterday and we discussed short-term follow-up. Time: : Vital Signs Vital signs: Vital Signs - 8 hr 02/02/21 22:46 02/03/21 00:35 02/03/21 02:17 Temperature 98 F Pulse Rate 85 80 76 Respiratory Rate 18 18 18 Blood Pressure 129/83 125/79 121/65 Pulse Oximetry 98 98 99 MDM - Anxiety Lab Data Attestation: I reviewed the patient's lab results. Result diagrams: 02/03/21 00:17 02/03/21 00:17 Labs: Lab Results 02/03/21 02/03/21 Range/Units 00:17 00:17 WBC 8.2 (4.5-11.0) X10^3/uL RBC 4.03 (4.0-5.2) X10^6/uL Hgb 12.6 (12.0-16.0) g/dL Hct 38.0 (36-46) % MCV 94.2 (80-100) fL MCH 31.3 (26-34) PG MCHC 33.2 (30-36) % RDW 13.5 (11.6-14.8) % Plt Count 343 (150-400) X10^3/uL Neut % (Auto) 57.1 (50-75) % Lymph % (Auto) 35.2 (25-40) % [place] % (Auto) 5.4 (3-14) % Eos % (Auto) 1.8 L (2-4) % Baso % (Auto) 0.5 (0-2) % Neut # (Auto) 4700 (3380-0902) /uL Lymph # (Auto) 2900 (3130-8823) /uL [place] # (Auto) 400 (0-900) /uL Eos # (Auto) 100 (0-450) /uL Baso # (Auto) 0 (0-100) /uL Sodium 138 (137-145) mmol/L Potassium 3.8 (3.4-5.1) mmol/L Chloride 108 H (98-107) mmol/L Carbon Dioxide 22 (22-32) mmol/L BUN 13 (7-17) mg/dL Creatinine 1.10 H (0.52-1.04) mg/dL Estimated GFR 59.6 L (>60) mL/min BUN/Creatinine Ratio 11.8 (6-22) Glucose 89 (70-100) mg/dL Calcium 8.8 (8.4-10.2) mg/dL Total Bilirubin 0.3 (0.2-1.3) mg/dL AST 36 (14-36) IU/L ALT 21 (<35) IU/L Alkaline Phosphatase 65 (38-126) U/L Total Protein 7.7 (6.3-8.2) g/dL Albumin 4.1 (3.5-5.0) g/dL Globulin 3.6 (1.7-4.1) g/dL Albumin/Globulin Ratio 1.1 (1.0-2.8) Lipase 74 (23-300) U/L Point of Care Testing Test Results Negative Urine Dip Bedside Urine Glucose Negative Bedside Urine Bilirubin - Negative Bedside Urine Ketone - Negative Urine Specific [place] 1.025 Bedside Urine Occult Blood - Negative Bedside Urine pH 6.0 Bedside Urine Protein - Negative Bedside Urine Urobilinogen - Negative Bedside Urine Nitrite - Negative Bedside Urine Leukocytes - Negative Esterase Discharge Plan Departure Patient Disposition: Home Clinical Impression: Acute anxiety Activity Restrictions/Additional Instructions: Follow up with your psychiatrist. I would recommend contacting them this morning to touch [facility] to see about adjusting any medications. You may take hydroxyzine 1 tablet every 6-8 hours as needed for anxiety. Prescription sent to [facility]. May continue all your home medications as prescribed. Please return prior any fevers, lightheadedness or passing out, new chest pain, shortness of breath, persistent vomiting, new weakness, numbness or difficulty with movement or other new or concerning symptoms. Prescriptions: New hydroxyzine HCl 25 mg tablet 25 mg PO QID PRN (Reason: anxiety) Qty: 14 RF: 0 Referrals: Dione Carpenter MD [Primary Care Provider] -
[2021-02-03] MEDS: SODIUM CHLORIDE 0.9% 1,000 ML 1000 ML IV (00:17)
[2021-02-03] MEDS: ALPRAZolam 0.5 MG TABLET PO (00:17)
[2021-02-03] MEDS: ONDANSETRON 4 MG/2 ML INJ IV (00:17)
[2021-02-03 00:30] LABS: Add Manual Diff / Slide Review NO; Basophils Absolute Auto 0 /uL (0-100); Basophils Percent Auto 0.5 % (0-2); Eosinophils Absolute Auto 100 /uL (0-450); Eosinophils Percent Auto 1.8 % (2-4); Hemoglobin 12.6 g/dL (12.0-16.0); Lymphocytes Absolute Auto 2900 /uL (1100-4500); Lymphocytes Percent Auto 35.2 % (25-40); Mean Corpuscular HGB Conc 33.2 % (30-36); Mean Corpuscular Hemoglobin 31.3 PG (26-34); Mean Corpuscular Volume 94.2 fL (80-100); Monocytes Absolute Auto 400 /uL (0-900); Monocytes Percent Auto 5.4 % (3-14); Neutrophils Absolute Auto 4700 /uL (1500-7000); Neutrophils Percent Auto 57.1 % (50-75); Platelet Count 343 X10^3/uL (150-400); Red Blood Cell Count 4.03 X10^6/uL (4.0-5.2); Red Cell Distribution Width 13.5 % (11.6-14.8); White Blood Cell Count 8.2 X10^3/uL (4.5-11.0)
[2021-02-03 00:35] VITALS: BP 125/79; PULSE 80; RESP 18; O2SAT 98
[2021-02-03 00:39] LABS: Alanine Aminotransferase 21 IU/L (<35); Albumin 4.1 g/dL (3.5-5.0); Albumin Globulin Ratio 1.1 (1.0-2.8); Alkaline Phosphatase 65 U/L (38-126); Aspartate Aminotransferase 36 IU/L (14-36); BUN Creatinine Ratio 11.8 (6-22); Bilirubin Total 0.3 mg/dL (0.2-1.3); Blood Urea Nitrogen 13 mg/dL (7-17); Calcium 8.8 mg/dL (8.4-10.2); Carbon Dioxide 22 mmol/L (22-32); Chloride 108 mmol/L (98-107); Estimated Glomerular Filt Rate 59.6 mL/min (>60); Globulin 3.6 g/dL (1.7-4.1); Glucose 89 mg/dL (70-100); Lipase 74 U/L (23-300); Potassium 3.8 mmol/L (3.4-5.1); Sodium 138 mmol/L (137-145); Total Protein 7.7 g/dL (6.3-8.2)
[2021-02-03 00:40] LABS: HEMOLYSIS 85 (0-50)
[2021-02-03 02:17] VITALS: BP 121/65; PULSE 76; RESP 18; O2SAT 99
== END 2021-02-03 02:17 | disposition home or self-care (01) ==
PROVIDERS: Emergency Provider Emergency Medicine; PCP Family Medicine
DX: F41.9 Anxiety disorder, unspecified (principal); R10.32 Left lower quadrant pain
CPT/HCPCS: 80053; 81003; 81025; 83690; 85025; 96361; 96374; 99284; J2405

== ENCOUNTER 2021-04-02 12:38 | Emergency (ER) | payer OTHER, SELFPAY ==
[2021-04-02 12:58] VITALS: BP 128/68; PULSE 73; RESP 15; TEMP 36.3; O2SAT 100; BMI 40.8
[2021-04-02 15:16] VITALS: PULSE 63; O2SAT 98
[2021-04-02 15:30] VITALS: PULSE 72; O2SAT 99
[2021-04-02 15:31] VITALS: BP 119/75; PULSE 72; O2SAT 98
[2021-04-02 18:00] VITALS: O2SAT 100
[2021-04-02 18:06] VITALS: BP 123/70; PULSE 73; RESP 18; O2SAT 100
--- NOTE | 2021-04-02 19:58 | ED.URI ---
HPI - URI/Sore Throat General Chief Complaint: Upper Respiratory Symptoms Stated Complaint: sore throat Time Seen by Provider: 04/02/21 17:06 Source: patient Mode of arrival: Ambulatory Limitations: no limitations History of Present Illness HPI Narrative: Patient is a 25-year-old female who presents with sore throat which started yesterday progressively got worse today. Up and lost her voice as well. She denies any fever or cough. And she did receive the COVID vaccine. Related Data Previous Rx's Medication Instructions Recorded hydroxyzine HCl 25 mg tablet 25 mg PO QID PRN #14 tab 02/03/21 Allergies Allergy/AdvReac Type Severity Reaction Status Date / Time No Known Drug Allergies Allergy Verified 04/02/21 12:58 Review of Systems Review of Systems Narrative: GENERAL: Denies chills, fatigue, malaise, fever, sweats, travel HEENT: See HPI RESPIRATORY: Denies dyspnea, cough, wheezing, hemoptysis, sputum. CARDIOVASCULAR: Denies chest pain, palpitations, orthopnea, edema GASTROINTESTINAL: Denies nausea, vomiting, abdominal pain, diarrhea, constipation, melena. : Denies dysuria, frequency, incontinence, hematuria, urinary retention, flank pain. MUSCULOSKELETAL: Denies weakness, joint pain, or bony pain SKIN: No rash, no erythema, no pruritus NEUROLOGIC: Denies weakness, dizziness, headache, numbness, change in speech, confusion PSYCHIATRIC: No concerning psychosocial issues. 12 point review of systems is negative except for those stated above and HPI Patient History Medical History Intracranial hypertension Migraines Social History Smoking Status: Never smoker Smoking Status: Never smoker alcohol intake frequency: holidays/special occasions only Substance Use Type: does not use Exam Initial Vital Signs Initial Vital Signs: Vital Signs Temperature 97.3 F L 04/02/21 12:58 Pulse Rate 73 04/02/21 12:58 Respiratory Rate 15 04/02/21 12:58 Blood Pressure 128/68 04/02/21 12:58 Pulse Oximetry 100 04/02/21 12:58 GENERAL: Well-appearing, well-nourished and in no acute distress. HEENT: Head atraumatic,EOMI, pupils reactive, face symmetric, moist mucous membranes PHARYNX: Erythematous no exudate no uvula swelling no cervical lymphadenopathy CARDIOVASCULAR: Regular rate and rhythm without murmurs, rubs or gallops. RESPIRATORY: Breath sounds equal bilaterally, no wheezes rales or rhonchi. EXTREMITIES: Normal range of motion, no clubbing or edema. Neurovascularly intact NEUROLOGICAL: Alert and oriented x4. SKIN: Warm, dry, no laceration, no petechiae, no rashes or lesions. Course Orders Ordered: ED Orders 04/02/21 15:50 Strep Screen Stat Vital Signs Vital signs: Vital Signs - 8 hr 04/02/21 12:58 04/02/21 15:16 04/02/21 15:30 Temperature 97.3 F L Pulse Rate 73 63 72 Respiratory Rate 15 Blood Pressure 128/68 Pulse Oximetry 100 98 99 04/02/21 15:31 04/02/21 18:00 04/02/21 18:06 Temperature Pulse Rate 72 73 Respiratory Rate 18 Blood Pressure 119/75 123/70 Pulse Oximetry 98 100 100 MDM - URI/Sore Throat Lab Data Labs: Point of Care Testing Rapid Strep A Negative MDM Narrative Medical decision making narrative: Rapid strep is negative backup culture is sent. At this time I believe this to be more upper respiratory and viral is based on erythematous throat and hoarseness of voice. Will wait for culture Discharge Plan Departure Patient Disposition: Home Clinical Impression: Pharyngitis Qualifiers: Pharyngitis/tonsillitis etiology: unspecified etiology Qualified Code(s): J02.9 - Acute pharyngitis, unspecified Instructions: DI for Viral Pharyngitis Activity Restrictions/Additional Instructions: *You have been diagnosed with pharyngitis *What to do: At this time no need for antibiotics. Initial strep is negative. Symptoms are most consistent with viral. However backup strep has been sent if it is positive in the next 2-3 days we will call you. *Continue to take medications as directed *Follow up with your primary care provider in 2-3 days *Return to ER if you should have increasing pain, difficulty swallowing or any new, worsening or concerning symptoms Prescriptions: No Action hydroxyzine HCl 25 mg tablet 25 mg PO QID PRN (Reason: anxiety) Qty: 14 RF: 0 Referrals: Dione Carpenter MD [Primary Care Provider] -
== END 2021-04-02 18:01 | disposition home or self-care (01) ==
PROVIDERS: Emergency Provider Emergency Medicine; PCP Family Medicine
DX: J02.9 Acute pharyngitis, unspecified (principal)
CPT/HCPCS: 87081; 87880; 99282

== ENCOUNTER 2021-10-21 15:58 | Emergency (ER) | payer OTHER, SELFPAY ==
[2021-10-21 16:03] VITALS: BP 128/72; PULSE 78; RESP 22; TEMP 36.3; O2SAT 98; BMI 42.0
--- NOTE | 2021-10-21 16:07 | DI.US.S_ITS ---
PROCEDURE: US PELVIC COMPLETE INDICATIONS: LLQ PAIN, CONCERN FOR TORSION OR OVARIAN CYST TECHNIQUE: Real-time scanning was performed of the pelvic organs, with image documentation. Additional endovaginal scanning was necessary due to incomplete visualization of the adnexal and endometrial structures by transabdominal scanning. COMPARISON: None. FINDINGS: Uterus: Uterus is anteverted and normal in size at 5.7 x 4.1 x 4.0 cm. The myometrium is homogeneous. The endometrium measures 3.4 mm combined thickness. Ovaries: Right left ovaries measure 2.9 x 1.8 x 2.2 cm in 2.3 x 1.3 x 1.7 cm respectively. Both ovaries have appropriate echotexture and vascularity. Other: No pathologic free abdominal or pelvic fluid. IMPRESSION: Unremarkable ultrasound the pelvis without evidence of ovarian torsion. Approved by: Devin Mosqueda M.D. on 10/21/2021 at 16:31
[2021-10-21] MEDS: MORPHINE 4 MG/ML INJ IV (16:09)
[2021-10-21] MEDS: ONDANSETRON 4 MG/2 ML INJ IV (16:10)
[2021-10-21 16:50] LABS: Alanine Aminotransferase 29 IU/L (<35); Albumin 4.4 g/dL (3.5-5.0); Alkaline Phosphatase 64 U/L (38-126); Aspartate Aminotransferase 40 IU/L (14-36); BUN Creatinine Ratio 14.5 (6-22); Bilirubin Total 0.4 mg/dL (0.2-1.3); Blood Urea Nitrogen 11 mg/dL (7-17); Calcium 9.2 mg/dL (8.4-10.2); Carbon Dioxide 27 mmol/L (22-32); Chloride 105 mmol/L (98-107); Estimated Glomerular Filt Rate > 60.0 mL/min (>60); Globulin 4.3 g/dL (1.7-4.1); Glucose 92 mg/dL (70-100); HEMOLYSIS 22 (0-50); Lipase 67 U/L (23-300); Potassium 3.5 mmol/L (3.4-5.1); Sodium 137 mmol/L (137-145); Total Protein 8.7 g/dL (6.3-8.2)
[2021-10-21 17:05] LABS: Add Manual Diff / Slide Review NO; Basophils Absolute Auto 0 /uL (0-100); Basophils Percent Auto 0.3 % (0-2); Eosinophils Absolute Auto 100 /uL (0-450); Eosinophils Percent Auto 1.9 % (2-4); Hematocrit 39.3 % (36-46); Hemoglobin 13.6 g/dL (12.0-16.0); Lymphocytes Absolute Auto 2400 /uL (1100-4500); Mean Corpuscular HGB Conc 34.6 % (30-36); Mean Corpuscular Hemoglobin 31.6 PG (26-34); Mean Corpuscular Volume 91.5 fL (80-100); Monocytes Absolute Auto 400 /uL (0-900); Monocytes Percent Auto 5.4 % (3-14); Neutrophils Absolute Auto 4200 /uL (1500-7000); Neutrophils Percent Auto 59.4 % (50-75); Platelet Count 361 X10^3/uL (150-400); Red Cell Distribution Width 13.3 % (11.6-14.8); White Blood Cell Count 7.1 X10^3/uL (4.5-11.0)
--- NOTE | 2021-10-21 18:24 | DI.CT.S_ITS ---
PROCEDURE: CT ABDOMEN PELVIS W CON INDICATIONS: Diffuse abdominal pain TECHNIQUE: After the administration of intravenous contrast, axial sections acquired from the lung bases to the pubic symphysis. Coronal and sagittal reformats were performed. For radiation dose reduction, the following was used: automated exposure control, adjustment of mA and/or kV according to patient size. COMPARISON: [facility], CT, CT ABDOMEN PELVIS W CON, 01/07/2021, 14:08. FINDINGS: Image quality: Excellent. Lung bases: Unremarkable. Heart: No significant findings. ABDOMEN: Liver: Unremarkable. Gallbladder: Unremarkable. Biliary ducts: Unremarkable. Pancreas: Unremarkable. Spleen: Unremarkable. Adrenal Glands: Unremarkable. Kidneys and Ureters: Unremarkable. Stomach and Bowel: Stomach, small bowel loops, and colon are unremarkable. Peritoneum: No abnormal intraperitoneal fluid. No free air. Ventral Wall: No hernias. Abdominal Nodes: No retroperitoneal or mesenteric adenopathy by size criteria. Vessels: Aorta and inferior vena cava are normal in size. PELVIS: Pelvic Organs: Unremarkable. Bladder: Unremarkable. Pelvic Nodes: No enlarged lymph nodes. Miscellaneous: No hernias are seen. Bones: Unremarkable. IMPRESSION: 1. No acute abdominal or pelvic abnormality. 2. Normal appendix. Dictated by: Michael Morton M.D. on 10/21/2021 at 20:45 Approved by: Michael Morton M.D. on 10/21/2021 at 20:49
[2021-10-21] MEDS: METOCLOPRAMIDE 10 MG/2 ML INJ IV (18:46)
--- NOTE | 2021-10-21 19:13 | PC.NURSE ---
patient states she normally has very regular periods but the last two have been later than usual and have been much heavier than usual. She is having more clots than usual. She is getting cramps that radiate to her back left side, mostly on the left. she has been having constipation and gas with some nausea and a loss of appetite. She feels better if she doesnt move but still have severe cramps occasionally.
--- NOTE | 2021-10-21 19:17 | ED_ITS ---
HPI - Female Genitourinary <Kwaku Post PA-C - Last Filed: 10/21/21 20:52> General Chief complaint: Urogenital-Female Stated complaint: Lower back pain Time Seen by Provider: 10/21/21 17:57 Source: patient and EMS Mode of arrival: EMS History of Present Illness HPI Narrative: Patient is a 26-year-old female presenting to the emergency department today for an evaluation of abdominal pain. Patient states that she is experience 2 consecutive periods that have started late, noting that when her period started this Sunday she experienced increasing abdominal pain. She states she has also experienced symptoms of constipation. She reports that she is experience abdominal pain for the past 2 weeks but states that is gotten worse over the past couple of days, noting that she has been experiencing nausea today. Of note, patient states that she is not sexually active. She states that her abdominal pain has been ?migrating? and appears worse in various areas of her abdomen. Patient denies fever, chills, chest pain, cough, shortness of breath, vomiting, diarrhea, dysuria, hematuria, vaginal discharge, pelvic pain, or any other concerning symptoms. No further concerns were voiced at this time. Related Data Previous Rx's Medication Instructions Recorded hydroxyzine HCl 25 mg tablet 25 mg PO QID PRN #14 tab 02/03/21 Allergies Allergy/AdvReac Type Severity Reaction Status Date / Time No Known Drug Allergies Allergy Verified 04/02/21 12:58 Review of Systems <Kwaku Post PA-C - Last Filed: 10/21/21 20:52> Constitutional Constitutional: Denies chills, Denies fatigue, Denies fever(s), Denies frequent falls, Denies lethargy and Denies weakness Eyes Eyes: Denies loss of vision ENT Ears, Nose, Mouth, and Throat: Denies dizziness and Denies neck pain Cardiovascular Cardiovascular: Denies chest pain, Denies irregular heart rhythm, Denies lightheadedness, Denies palpitations, Denies dyspnea, Denies dyspnea on exertion and Denies orthopnea Respiratory Respiratory: Denies cough, Denies dyspnea, Denies dyspnea on exertion and Denies wheezing Gastrointestinal Gastrointestinal: Reports abdominal pain, Denies change in bowel habits, Reports constipation, Denies diarrhea, Reports nausea and Denies vomiting Genitourinary Genitourinary: Denies hematuria, Denies flank pain, Denies urinary incontinence, Denies urinary urgency and Denies vaginal discharge Musculoskeletal Musculoskeletal: Denies back pain, Denies muscle weakness, Denies neck pain, Denies numbness and Denies tingling Integumentary/Breasts Skin/Breast: Denies pruritus, Denies erythema, Denies rash and Denies wounds Neurologic Neurologic: Denies behavioral changes, Denies confusion, Denies dizziness, Denies frequent falls, Denies loss of vision, Denies numbness, Denies tingling and Denies weakness Psychiatric Psychiatric: Denies behavioral changes and Denies confusion Endocrine Endocrine: Denies fatigue and Denies palpitations Allergic/Immunologic Allergic/Immunologic: Denies wheezing Patient History <Kwaku Post PA-C - Last Filed: 10/21/21 20:52> Medical History Intracranial hypertension Migraines alcohol intake frequency: holidays/special occasions only Substance Use Type: does not use Exam <Kwaku Post PA-C - Last Filed: 10/21/21 20:52> Narrative Exam Narrative: GENERAL: 26 year old patient appears stated age. Well-developed patient, in mild distress. HEAD: Atraumatic. Normocephalic. EYES: Pupils equal round and reactive. Extraocular motions intact. No scleral icterus. No injection or drainage. ENT: Nose without bleeding, purulent drainage. Throat without erythema, tonsillar hypertrophy or exudate. Airway patent. NECK: Trachea midline. Non tender CARDIOVASCULAR: Regular rate and rhythm without murmurs, gallops, or rubs. RESPIRATORY: Clear to auscultation. Breath sounds equal bilaterally. No wheezes, rales, or rhonchi. GASTROINTESTINAL: Abdomen soft, nondistended. Tenderness to palpation throughout the entire abdomen. No pulsatile masses appreciated. No surgical scars noted. EXTREMITIES: No edema or joint tenderness. BACK: Nontender without deformity or crepitance. No flank tenderness. NEURO: AOx3. SKIN: No rash or erythema of visible areas Initial Vital Signs Initial Vital Signs: Vital Signs Temperature 97.3 F L 10/21/21 16:03 Pulse Rate 78 10/21/21 16:03 Respiratory Rate 22 10/21/21 16:03 Blood Pressure 128/72 10/21/21 16:03 Pulse Oximetry 98 10/21/21 16:03 <Sourav Ocampo DO - Last Filed: 10/21/21 23:25> Initial Vital Signs Initial Vital Signs: Vital Signs Temperature 97.3 F L 10/21/21 16:03 Pulse Rate 78 10/21/21 16:03 Respiratory Rate 22 10/21/21 16:03 Blood Pressure 128/72 10/21/21 16:03 Pulse Oximetry 98 10/21/21 16:03 Course <Kwaku Post PA-C - Last Filed: 10/21/21 20:52> Course Course Narrative: CBC, CMP, lipase, urine dip, pelvic ultrasound, CT of the abdomen pelvis obtained. Orders Ordered: ED Orders 10/21/21 16:07 US pelvic complete Stat 10/21/21 16:20 Complete Blood Count AUTO DIFF Stat Comprehensive Metabolic Panel Stat Lipase Stat 10/21/21 18:24 CT abdomen pelvis w con Stat Discontinued Medications Metoclopramide HCl (Metoclopramide 10 Mg/2 Ml Inj) 10 mg IV NOW ONE Stop: 10/21/21 18:25 Last Admin: 10/21/21 18:46 Dose: 10 mg Documented by: HAL Morphine Sulfate (Morphine 4 Mg/Ml Inj) 4 mg IV NOW ONE Stop: 10/21/21 16:07 Last Admin: 10/21/21 16:09 Dose: 4 mg Documented by: JUN Ondansetron HCl (Ondansetron 4 Mg/2 Ml Inj) 4 mg IV NOW ONE Stop: 10/21/21 16:07 Last Admin: 10/21/21 16:10 Dose: 4 mg Documented by: JUN Vital Signs Vital signs: Vital Signs - 8 hr 10/21/21 16:03 10/21/21 21:25 Temperature 97.3 F L Pulse Rate 78 73 Respiratory Rate 22 18 Blood Pressure 128/72 134/98 H Pulse Oximetry 98 99 <DO Alejandra Osullivan Last Filed: 10/21/21 23:25> Orders Ordered: ED Orders 10/21/21 16:07 US pelvic complete Stat 10/21/21 16:20 Complete Blood Count AUTO DIFF Stat Comprehensive Metabolic Panel Stat Lipase Stat 10/21/21 18:24 CT abdomen pelvis w con Stat Discontinued Medications Metoclopramide HCl (Metoclopramide 10 Mg/2 Ml Inj) 10 mg IV NOW ONE Stop: 10/21/21 18:25 Last Admin: 10/21/21 18:46 Dose: 10 mg Documented by: HAL Morphine Sulfate (Morphine 4 Mg/Ml Inj) 4 mg IV NOW ONE Stop: 10/21/21 16:07 Last Admin: 10/21/21 16:09 Dose: 4 mg Documented by: JUN Ondansetron HCl (Ondansetron 4 Mg/2 Ml Inj) 4 mg IV NOW ONE Stop: 10/21/21 16:07 Last Admin: 10/21/21 16:10 Dose: 4 mg Documented by: JUN Vital Signs Vital signs: Vital Signs - 8 hr 10/21/21 16:03 10/21/21 21:25 Temperature 97.3 F L Pulse Rate 78 73 Respiratory Rate 22 18 Blood Pressure 128/72 134/98 H Pulse Oximetry 98 99 MDM - Female Genitourinary <Kwaku Post PA-C - Last Filed: 10/21/21 20:52> Lab Data Result diagrams: 10/21/21 16:20 10/21/21 16:20 Labs: Lab Results 10/21/21 10/21/21 Range/Units 16:20 16:20 WBC 7.1 (4.5-11.0) X10^3/uL RBC 4.30 (4.0-5.2) X10^6/uL Hgb 13.6 (12.0-16.0) g/dL Hct 39.3 (36-46) % MCV 91.5 (80-100) fL MCH 31.6 (26-34) PG MCHC 34.6 (30-36) % RDW 13.3 (11.6-14.8) % Plt Count 361 (150-400) X10^3/uL Neut % (Auto) 59.4 (50-75) % Lymph % (Auto) 33.0 (25-40) % Hancock % (Auto) 5.4 (3-14) % Eos % (Auto) 1.9 L (2-4) % Baso % (Auto) 0.3 (0-2) % Neut # (Auto) 4200 (5138-5014) /uL Lymph # (Auto) 2400 (7921-3208) /uL Hancock # (Auto) 400 (0-900) /uL Eos # (Auto) 100 (0-450) /uL Baso # (Auto) 0 (0-100) /uL Sodium 137 (137-145) mmol/L Potassium 3.5 (3.4-5.1) mmol/L Chloride 105 (98-107) mmol/L Carbon Dioxide 27 (22-32) mmol/L BUN 11 (7-17) mg/dL Creatinine 0.76 (0.52-1.04) mg/dL Estimated GFR > 60.0 (>60) mL/min BUN/Creatinine Ratio 14.5 (6-22) Glucose 92 (70-100) mg/dL Calcium 9.2 (8.4-10.2) mg/dL Total Bilirubin 0.4 (0.2-1.3) mg/dL AST 40 H (14-36) IU/L ALT 29 (<35) IU/L Alkaline Phosphatase 64 (38-126) U/L Total Protein 8.7 H (6.3-8.2) g/dL Albumin 4.4 (3.5-5.0) g/dL Globulin 4.3 H (1.7-4.1) g/dL Albumin/Globulin Ratio 1.0 (1.0-2.8) Lipase 67 (23-300) U/L Point of Care Testing Test Results Negative Urine Dip Bedside Urine Glucose Negative Bedside Urine Bilirubin - Negative Bedside Urine Ketone - Negative Urine Specific Mccamey 1.015 Bedside Urine Occult Blood - Negative Bedside Urine Protein - Negative Bedside Urine Urobilinogen - Negative Bedside Urine Nitrite - Negative Bedside Urine Leukocytes - Negative Esterase MDM Narrative Medical decision making narrative: Tissue scissor appendicitis versus diverticulitis versus gastroenteritis versus constipation. Transfer of care from Kwaku Post PA-C to Dr. Ocampo at 2049, 10/21/21. <Sourav Ocampo DO - Last Filed: 10/21/21 23:25> Lab Data Labs: Lab Results 10/21/21 10/21/21 Range/Units 16:20 16:20 WBC 7.1 (4.5-11.0) X10^3/uL RBC 4.30 (4.0-5.2) X10^6/uL Hgb 13.6 (12.0-16.0) g/dL Hct 39.3 (36-46) % MCV 91.5 (80-100) fL MCH 31.6 (26-34) PG MCHC 34.6 (30-36) % RDW 13.3 (11.6-14.8) % Plt Count 361 (150-400) X10^3/uL Neut % (Auto) 59.4 (50-75) % Lymph % (Auto) 33.0 (25-40) % Hancock % (Auto) 5.4 (3-14) % Eos % (Auto) 1.9 L (2-4) % Baso % (Auto) 0.3 (0-2) % Neut # (Auto) 4200 (9328-8778) /uL Lymph # (Auto) 2400 (4480-8274) /uL Hancock # (Auto) 400 (0-900) /uL Eos # (Auto) 100 (0-450) /uL Baso # (Auto) 0 (0-100) /uL Sodium 137 (137-145) mmol/L Potassium 3.5 (3.4-5.1) mmol/L Chloride 105 (98-107) mmol/L Carbon Dioxide 27 (22-32) mmol/L BUN 11 (7-17) mg/dL Creatinine 0.76 (0.52-1.04) mg/dL Estimated GFR > 60.0 (>60) mL/min BUN/Creatinine Ratio 14.5 (6-22) Glucose 92 (70-100) mg/dL Calcium 9.2 (8.4-10.2) mg/dL Total Bilirubin 0.4 (0.2-1.3) mg/dL AST 40 H (14-36) IU/L ALT 29 (<35) IU/L Alkaline Phosphatase 64 (38-126) U/L Total Protein 8.7 H (6.3-8.2) g/dL Albumin 4.4 (3.5-5.0) g/dL Globulin 4.3 H (1.7-4.1) g/dL Albumin/Globulin Ratio 1.0 (1.0-2.8) Lipase 67 (23-300) U/L Point of Care Testing Test Results Negative Urine Dip Bedside Urine Glucose Negative Bedside Urine Bilirubin - Negative Bedside Urine Ketone - Negative Urine Specific Mccamey 1.015 Bedside Urine Occult Blood - Negative Bedside Urine Protein - Negative Bedside Urine Urobilinogen - Negative Bedside Urine Nitrite - Negative Bedside Urine Leukocytes - Negative Esterase Imaging Data CT scan - abdomen/pelvis: Radiologist's Impression: [address] [address] [address] Scan Report Signed Patient: Mari Hummel MR#: [id number] : 1995 Acct:[id number] Age/Sex: 26 / F Date of Service: 10/21/21 Loc: ED Accession Number: [id number] ?? Procedure: CT abdomen pelvis w con Ordering Provider: Kwaku Post P.A-C PROCEDURE:? CT ABDOMEN PELVIS W CON ? INDICATIONS:? Diffuse abdominal pain ? TECHNIQUE:? After the administration of intravenous contrast, axial sections acquired from the lung bases to the pubic symphysis.? Coronal and sagittal reformats were performed.? For radiation dose reduction, the following was used:? automated exposure control, adjustment of mA and/or kV according to patient size.? ? COMPARISON:? [facility], CT, CT ABDOMEN PELVIS W CON, 01/07/2021, 14:08. ? FINDINGS:? Image quality:? Excellent.? ? Lung bases:? Unremarkable. Heart:? No significant findings. ? ABDOMEN: Liver:? Unremarkable.? ? Gallbladder:? Unremarkable.? ? Biliary ducts:? Unremarkable.? ? Pancreas:? Unremarkable.? ? Spleen:? Unremarkable.? ? Adrenal Glands:? Unremarkable.? ? Kidneys and Ureters:? Unremarkable.? ? ? Stomach and Bowel:? Stomach, small bowel loops, and colon are unremarkable.? Peritoneum:? No abnormal intraperitoneal fluid.? No free air.? ? Ventral Wall: ? No hernias.? Abdominal Nodes:? No retroperitoneal or mesenteric adenopathy by size criteria.? Vessels:? Aorta and inferior vena cava are normal in size.? ? PELVIS: Pelvic Organs:? Unremarkable.? ? Bladder:? Unremarkable.? ? Pelvic Nodes: No enlarged lymph nodes.? Miscellaneous: No hernias are seen. ? ? ? Bones:? Unremarkable.? IMPRESSION: 1. No acute abdominal or pelvic abnormality. 2. Normal appendix.? ? ? Dictated by: Michael Morton M.D. on 10/21/2021 at 20:45 ? ? Approved by: Michael Morton M.D. on 10/21/2021 at 20:49? MDM Narrative Medical decision making narrative: Tissue scissor appendicitis versus diverticulitis versus gastroenteritis versus constipation. Transfer of care from Kwaku Post PA-C to Dr. Ocampo at 2049, 10/21/21. Dr Ocampo: Received turned over. Reviewed patient's workup up to this point. Patient's CT scan is unremarkable. Ultrasounds unremarkable. Labs are unremark able. I evaluated the patient independently. There does not appear to be any surgical/emergent/infectious etiology to her symptoms. I did discuss the lack of a definitive diagnosis with the patient she expressed understanding with this. She has a follow-up with Ob [facility] scheduled for 1 week from now. No further workup required here in the emergency department. She was given strict return precautions. She expressed understanding and agreement. Discharge Plan Departure Patient Disposition: Home Clinical Impression: Abdominal pain, Vaginal bleeding Instructions: DI for Abdominal Pain-Adult Activity Restrictions/Additional Instructions: I recommend that you keep your appointment with the GI doctor that is already scheduled for next Sunday. I recommend a bland diet. Continue all of your medications as directed. Return to the emergency department for any new or worsening symptoms. Prescriptions: No Action hydroxyzine HCl 25 mg tablet 25 mg PO QID PRN (Reason: anxiety) Qty: 14 0RF Referrals: Darin Cunha PA-C [Primary Care Provider] -
--- NOTE | 2021-10-21 19:19 | PC.NURSE ---
pt request to have painful iv in left hand taken out.
[2021-10-21 21:25] VITALS: BP 134/98; PULSE 73; RESP 18; O2SAT 99
== END 2021-10-21 21:27 | disposition home or self-care (01) ==
PROVIDERS: Physician Assistant; Emergency Provider Emergency Medicine; PCP Physician Assistant
DX: R10.84 Generalized abdominal pain (principal); N93.9 Abnormal uterine and vaginal bleeding, unspecified; R11.0 Nausea
CPT/HCPCS: 36415; 74177; 76830; 76856; 80053; 81003; 81025; 83690; 85025; 96374; 96375; 99284; J2270; J2405; J2765; Q9967

== ENCOUNTER → 2021-10-31 09:37 | Outpatient (CLI) | payer OTHER, SELFPAY ==
[2021-10-31 11:08] LABS: Free T4, Direct Thyroxine 1.04 ng/dL (0.78-2.19)
[2021-10-31 11:22] LABS: Thyroid Stimulating Hormone 2.12 uIU/mL (0.47-4.68)
== END ==
PROVIDERS: PCP Physician Assistant; Referring Provider Obstetrics & Gynecology; Visit Provider Obstetrics & Gynecology
DX: N93.9 Abnormal uterine and vaginal bleeding, unspecified (principal)
CPT/HCPCS: 36415; 84439; 84443

== ENCOUNTER 2022-07-14 13:16 | Emergency (ER) | payer OTHER, SELFPAY ==
--- NOTE | 2022-07-14 13:24 | ED.GIBLEED ---
HPI - GI Bleed General Chief complaint: GI Bleed Stated complaint: dark bloody stools for 1 week Time Seen by Provider: 07/14/22 13:20 History of Present Illness HPI Narrative: Patient is a 26-year-old healthy female who presents with rectal bleeding ongoing for the last 2 weeks. She says she has this once before it did eventually go away however for the last 2 weeks she has had bleeding every time she has a bowel movement she is having some intermittent sharp stabbing cramping in her lower abdomen. She is generally feeling weak and tired. She is mildly dizzy when she stands up. She denies any shortness of breath. She has not had a colonoscopy. She says a couple months ago she was extremely constipated she took laxatives which resolved that problem and now having bloody stool. She kindly showed me a picture on her phone of her bloody bowel movement. She denies any nausea or vomiting. No chest pain or palpitations. Related Data Previous Rx's Medication Instructions Recorded hydroxyzine HCl 25 mg tablet 25 mg PO QID PRN anxiety #14 tabs 02/03/21 hydrocortisone acetate 25 mg 25 mg AR DAILY #12 ea 07/14/22 rectal suppository (Anusol-HC) Allergies Allergy/AdvReac Type Severity Reaction Status Date / Time No Known Drug Allergies Allergy Verified 12/13/21 08:05 Review of Systems Review of Systems Narrative: GENERAL: Denies chills, fatigue, malaise, fever, sweats, travel HEENT: Denies sinus pain, ear pain, sore throat, difficulty swallowing, neck pain RESPIRATORY: Denies dyspnea, cough, wheezing, hemoptysis, sputum. CARDIOVASCULAR: Denies chest pain, palpitations, orthopnea, edema GASTROINTESTINAL: See HPI : Denies dysuria, frequency, incontinence, hematuria, urinary retention, flank pain. MUSCULOSKELETAL: Denies weakness, joint pain, or bony pain SKIN: No rash, no erythema, no pruritus NEUROLOGIC: Denies weakness, dizziness, headache, numbness, change in speech, confusion PSYCHIATRIC: No concerning psychosocial issues. 12 point review of systems is negative except for those stated above and HPI Patient History Medical History Intracranial hypertension Migraines Social History Smoking Status: Never smoker Smoking Status: Never smoker alcohol intake frequency: holidays/special occasions only Substance Use Type: does not use Exam Initial Vital Signs Initial Vital Signs: Vital Signs Temperature 97.8 F 07/14/22 13:26 Pulse Rate 104 H 07/14/22 13:26 Respiratory Rate 18 07/14/22 13:26 Blood Pressure 127/80 07/14/22 13:26 Pulse Oximetry 98 07/14/22 13:26 Oxygen Delivery Method 07/14/22 13:26 GENERAL: Alert pleasant 78-year-old female and in no acute distress. HEENT: Head atraumatic,EOMI, pupils reactive, face symmetric, mildly pale conjunctiva CARDIOVASCULAR: Regular rate and rhythm without murmurs, rubs or gallops. RESPIRATORY: Breath sounds equal bilaterally, no wheezes rales or rhonchi. ABDOMEN: Soft, nontender. Normoactive bowel sounds all 4 quadrants. No guarding or rebound. RECTAL: No gross blood internal hemorrhoids appreciated tender on exam EXTREMITIES: Normal range of motion, no clubbing or edema. Neurovascularly intact NEUROLOGICAL: Alert and oriented x4. SKIN: Warm, dry, no laceration, no petechiae, no rashes or lesions. Course Orders Ordered: ED Orders 07/14/22 13:32 CT abdomen pelvis w con Stat 07/14/22 13:37 CBC Auto Diff [Complete Blood Count AUTO DIFF] Stat CMP [Comprehensive Metabolic Panel] Stat Lactate (Lactic Acid) Stat Lipase Stat PT [Prothrombin Time INR] Stat PTT [Partial Thromboplastin Time] Stat Discontinued Medications Sodium Chloride (Normal Saline 0.9%) 1,000 mls @ 1,000 mls/hr IV BOLUS ONE Stop: 07/14/22 14:32 Last Infusion: 07/14/22 15:02 Dose: 0 mls/hr Documented By: Admin: 07/14/22 13:54 Dose: 1,000 mls/hr Documented By: JV Morphine Sulfate (Morphine 2 Mg/Ml Inj) 2 mg IV NOW ONE Stop: 07/14/22 13:43 Last Admin: 07/14/22 13:55 Dose: 2 mg Documented By: JV Ondansetron HCl (Ondansetron 4 Mg/2 Ml Inj) 4 mg IV NOW ONE Stop: 07/14/22 13:43 Last Admin: 07/14/22 13:55 Dose: 4 mg Documented By: JV Pantoprazole Sodium (Pantoprazole 40 Mg Vial) 40 mg IV NOW ONE Stop: 07/14/22 13:33 Last Admin: 07/14/22 13:55 Dose: 40 mg Documented By: JV Vital Signs Vital signs: Vital Signs - 8 hr 07/14/22 13:26 07/14/22 13:57 07/14/22 14:00 Temperature 97.8 F Pulse Rate 104 H 97 H 96 H Respiratory Rate 18 Blood Pressure 127/80 Pulse Oximetry 98 100 100 Oxygen Delivery Method Room Air 07/14/22 14:30 Temperature Pulse Rate 89 Respiratory Rate Blood Pressure Pulse Oximetry 100 Oxygen Delivery Method MDM - GI Bleed Lab Data Result diagrams: 07/14/22 13:37 07/14/22 13:37 Labs: Lab Results 07/14/22 07/14/22 07/14/22 Range/Units 13:37 13:37 13:37 WBC 10.0 (4.5-11.0) X10^3/uL RBC 4.00 (4.0-5.2) X10^6/uL Hgb 12.3 (12.0-16.0) g/dL Hct 36.7 (36-46) % MCV 91.7 (80-100) fL MCH 30.8 (26-34) PG MCHC 33.5 (30-36) % RDW 14.1 (11.6-14.8) % Plt Count 332 (150-400) X10^3/uL Neut % (Auto) 58.9 (50-75) % Lymph % (Auto) 32.7 (25-40) % [place] % (Auto) 6.3 (3-14) % Eos % (Auto) 1.8 L (2-4) % Baso % (Auto) 0.3 (0-2) % Neut # (Auto) 5900 (9977-9583) /uL Lymph # (Auto) 3300 (2713-1106) /uL [place] # (Auto) 600 (0-900) /uL Eos # (Auto) 200 (0-450) /uL Baso # (Auto) 0 (0-100) /uL PT 11.8 (10.1-12.7) SECONDS INR 1.0 (0.9-1.3) APTT 36 (26-36) SECONDS Sodium 138 (137-145) mmol/L Potassium 3.8 (3.4-5.1) mmol/L Chloride 104 (98-107) mmol/L Carbon Dioxide 25 (22-32) mmol/L BUN 15 (7-17) mg/dL Creatinine 1.05 H (0.52-1.04) mg/dL Estimated GFR > 60 (>60) mL/min BUN/Creatinine Ratio 14.3 (6-22) Glucose 97 (70-100) mg/dL Lactate (0.7-2.1) mmol/L Calcium 8.5 (8.4-10.2) mg/dL Total Bilirubin 0.3 (0.2-1.3) mg/dL AST 25 (14-36) IU/L ALT 28 (<35) IU/L Alkaline Phosphatase 75 (38-126) U/L Total Protein 7.5 (6.3-8.2) g/dL Albumin 3.8 (3.5-5.0) g/dL Globulin 3.7 (1.7-4.1) g/dL Albumin/Globulin Ratio 1.0 (1.0-2.8) Lipase 64 (23-300) U/L 07/14/22 Range/Units 13:37 WBC (4.5-11.0) X10^3/uL RBC (4.0-5.2) X10^6/uL Hgb (12.0-16.0) g/dL Hct (36-46) % MCV (80-100) fL MCH (26-34) PG MCHC (30-36) % RDW (11.6-14.8) % Plt Count (150-400) X10^3/uL Neut % (Auto) (50-75) % Lymph % (Auto) (25-40) % [place] % (Auto) (3-14) % Eos % (Auto) (2-4) % Baso % (Auto) (0-2) % Neut # (Auto) (9785-7928) /uL Lymph # (Auto) (4577-0092) /uL [place] # (Auto) (0-900) /uL Eos # (Auto) (0-450) /uL Baso # (Auto) (0-100) /uL PT (10.1-12.7) SECONDS INR (0.9-1.3) APTT (26-36) SECONDS Sodium (137-145) mmol/L Potassium (3.4-5.1) mmol/L Chloride (98-107) mmol/L Carbon Dioxide (22-32) mmol/L BUN (7-17) mg/dL Creatinine (0.52-1.04) mg/dL Estimated GFR (>60) mL/min BUN/Creatinine Ratio (6-22) Glucose (70-100) mg/dL Lactate 0.7 (0.7-2.1) mmol/L Calcium (8.4-10.2) mg/dL Total Bilirubin (0.2-1.3) mg/dL AST (14-36) IU/L ALT (<35) IU/L Alkaline Phosphatase (38-126) U/L Total Protein (6.3-8.2) g/dL Albumin (3.5-5.0) g/dL Globulin (1.7-4.1) g/dL Albumin/Globulin Ratio (1.0-2.8) Lipase (23-300) U/L Point of Care Testing Test Results Negative Urine Dip Bedside Urine Glucose Negative Bedside Urine Bilirubin - Negative Bedside Urine Ketone - Negative Urine Specific [place] 1.010 Bedside Urine Occult Blood - Negative Bedside Urine pH 7.0 Bedside Urine Protein - Negative Bedside Urine Urobilinogen - Negative Bedside Urine Nitrite - Negative Bedside Urine Leukocytes - Negative Esterase Imaging Data CT scan - abdomen/pelvis: Radiologist's Impression: CT Scan Report Signed Patient: Mari Hummel MR#: [id number] : 1995 Acct:[id number] Age/Sex: 26 / F Date of Service: 07/14/22 Loc: ED Accession Number: [id number] ?? Procedure: CT abdomen pelvis w con Ordering Provider: Geri Contreras D.O. PROCEDURE:? CT ABDOMEN PELVIS W CON ? INDICATIONS:? rectal bleeding 2 weeks ? TECHNIQUE:? After the administration of oral and IV contrast, axial sections were acquired from the lung bases to the pubic symphysis.? Coronal and sagittal reformats were performed.? For radiation dose reduction, the following was used:? automated exposure control, adjustment of mA and/or kV according to patient size. ? COMPARISON:? [facility], CT, CT ABDOMEN PELVIS W CON, 10/21/2021, 20:12. ? FINDINGS:? Image quality:? Excellent.? ? Lung bases:? Unremarkable.? ? Heart:? No significant findings. ? ? ABDOMEN: Liver:? Liver is enlarged measuring 18.8 cm with steatosis. Gallbladder:? Contracted but otherwise grossly unremarkable? ? Biliary ducts:? Unremarkable.? ? Pancreas:? Unremarkable.? ? Spleen:? Unremarkable.? ? Adrenal Glands:? Unremarkable.? ? Kidneys and Ureters:? Unremarkable.? ? ? Stomach and Bowel:? Stomach, small bowel loops, and colon are nonobstructive.? There is a slight thickened appearance of the rectum not significantly changed compared to 10/21/2021..? Appendix is normal. Peritoneum:? No abnormal intraperitoneal fluid.? No free air.? ? Ventral Wall: ? No hernia.? Abdominal Nodes:? No retroperitoneal or mesenteric adenopathy by size criteria.? Vessels:? Aorta and inferior vena cava are normal in size.? ? PELVIS: Pelvic Organs:? Unremarkable.? ? Bladder:? Unremarkable.? ? Pelvic Nodes: No enlarged lymph nodes.? Miscellaneous: No inguinal hernias are seen. ? ? ? Bones:? Unremarkable.? IMPRESSION:? ? Slightly thickened appearance of the rectum without significant change.? This could be secondary to incomplete distention.? No discrete mass.? However, given clinical history, recommend further clinical evaluation and colonoscopy as indicated. ? ? Dictated by: Luly Rolon M.D. on 07/14/2022 at 15:10 ? ? Approved by: Luly Rolon M.D. on 07/14/2022 at 15:14 ? MDM Narrative Medical decision making narrative: Patient has had rectal bleeding ongoing for the last 2 weeks but is not anemic. She is tender on exam which would suggest hemorrhoidal bleeding. Other differential includes ulcerative colitis possible Crohn's disease as well although unlikely, and colon cancer. I strongly encouraged her to have an outpatient colonoscopy. At this time she is hemodynamically stable heart rate improved with pain medication and Protonix. IV fluids were ordered but she did not receive the full Liter. Discharge Plan Departure Patient Disposition: Home Clinical Impression: Rectal bleed Instructions: Inflammatory Bowel Disease, DI for Rectal Bleeding Activity Restrictions/Additional Instructions: *You have been diagnosed with rectal bleeding *What to do: At this time her blood work is overall reassuring and psoas your CT scan. However I do strongly encourage you to have a colonoscopy. Please call surgery to schedule this and he may need a referral from her PCP. He may possibly have a hemorrhoid *Continue to take medications as directed An[facility]ol supp[facility] daily may [facility] at [facility] Tylenol 1000 mg every 6 hours if needed for [id number] pain Avoid NSAIDs such as ibuprofen, Aleve, aspirin etc *Follow up with your primary care provider in 2-3 days or call [phone] *Return to ER if you should have dizziness lightheadedness passing out increased pain or any new, worsening or concerning symptoms Prescriptions: New hydrocortisone acetate [Anusol-HC] 25 mg suppository 25 mg AR DAILY Qty: 12 0RF No Action hydroxyzine HCl 25 mg tablet 25 mg PO QID PRN (Reason: anxiety) Qty: 14 0RF Referrals: Darin Cunha PA-C [Primary Care Provider] -
[2022-07-14 13:26] VITALS: BP 127/80; PULSE 104; RESP 18; TEMP 36.6; O2SAT 98; BMI 39.1
--- NOTE | 2022-07-14 13:32 | DI.CT.S_ITS ---
PROCEDURE: CT ABDOMEN PELVIS W CON INDICATIONS: rectal bleeding 2 weeks TECHNIQUE: After the administration of oral and IV contrast, axial sections were acquired from the lung bases to the pubic symphysis. Coronal and sagittal reformats were performed. For radiation dose reduction, the following was used: automated exposure control, adjustment of mA and/or kV according to patient size. COMPARISON: [facility], CT, CT ABDOMEN PELVIS W CON, 10/21/2021, 20:12. FINDINGS: Image quality: Excellent. Lung bases: Unremarkable. Heart: No significant findings. ABDOMEN: Liver: Liver is enlarged measuring 18.8 cm with steatosis. Gallbladder: Contracted but otherwise grossly unremarkable Biliary ducts: Unremarkable. Pancreas: Unremarkable. Spleen: Unremarkable. Adrenal Glands: Unremarkable. Kidneys and Ureters: Unremarkable. Stomach and Bowel: Stomach, small bowel loops, and colon are nonobstructive. There is a slight thickened appearance of the rectum not significantly changed compared to 10/21/2021.. Appendix is normal. Peritoneum: No abnormal intraperitoneal fluid. No free air. Ventral Wall: No hernia. Abdominal Nodes: No retroperitoneal or mesenteric adenopathy by size criteria. Vessels: Aorta and inferior vena cava are normal in size. PELVIS: Pelvic Organs: Unremarkable. Bladder: Unremarkable. Pelvic Nodes: No enlarged lymph nodes. Miscellaneous: No inguinal hernias are seen. Bones: Unremarkable. IMPRESSION: Slightly thickened appearance of the rectum without significant change. This could be secondary to incomplete distention. No discrete mass. However, given clinical history, recommend further clinical evaluation and colonoscopy as indicated. Dictated by: Luly Rolon M.D. on 07/14/2022 at 15:10 Approved by: Luly Rolon M.D. on 07/14/2022 at 15:14
[2022-07-14 13:50] LABS: Add Manual Diff / Slide Review NO; Basophils Absolute Auto 0 /uL (0-100); Basophils Percent Auto 0.3 % (0-2); Eosinophils Absolute Auto 200 /uL (0-450); Eosinophils Percent Auto 1.8 % (2-4); Hematocrit 36.7 % (36-46); Hemoglobin 12.3 g/dL (12.0-16.0); Lymphocytes Absolute Auto 3300 /uL (1100-4500); Lymphocytes Percent Auto 32.7 % (25-40); Mean Corpuscular HGB Conc 33.5 % (30-36); Mean Corpuscular Hemoglobin 30.8 PG (26-34); Mean Corpuscular Volume 91.7 fL (80-100); Monocytes Absolute Auto 600 /uL (0-900); Monocytes Percent Auto 6.3 % (3-14); Neutrophils Absolute Auto 5900 /uL (1500-7000); Neutrophils Percent Auto 58.9 % (50-75); Platelet Count 332 X10^3/uL (150-400); Red Cell Distribution Width 14.1 % (11.6-14.8)
[2022-07-14] MEDS: SODIUM CHLORIDE 0.9% 1,000 ML 1000 ML IV (13:54)
[2022-07-14] MEDS: PANTOPRAZOLE 40 MG VIAL IV (13:55)
[2022-07-14] MEDS: ONDANSETRON 4 MG/2 ML INJ IV (13:55)
[2022-07-14] MEDS: MORPHINE 2 MG/ML INJ IV (13:55)
[2022-07-14 13:56] LABS: Prothrombin Time 11.8 SECONDS (10.1-12.7)
[2022-07-14 13:57] VITALS: PULSE 97; O2SAT 100
[2022-07-14 13:58] LABS: PTT Partial Thromboplastin Tim 36 SECONDS (26-36)
[2022-07-14 14:00] VITALS: PULSE 96; O2SAT 100
[2022-07-14 14:00] LABS: Alanine Aminotransferase 28 IU/L (<35); Albumin 3.8 g/dL (3.5-5.0); Alkaline Phosphatase 75 U/L (38-126); Aspartate Aminotransferase 25 IU/L (14-36); BUN Creatinine Ratio 14.3 (6-22); Bilirubin Total 0.3 mg/dL (0.2-1.3); Blood Urea Nitrogen 15 mg/dL (7-17); Calcium 8.5 mg/dL (8.4-10.2); Carbon Dioxide 25 mmol/L (22-32); Chloride 104 mmol/L (98-107); Estimated Glomerular Filt Rate > 60 mL/min (>60); Globulin 3.7 g/dL (1.7-4.1); Glucose 97 mg/dL (70-100); HEMOLYSIS < 15 (0-50); Lipase 64 U/L (23-300); Potassium 3.8 mmol/L (3.4-5.1); Sodium 138 mmol/L (137-145); Total Protein 7.5 g/dL (6.3-8.2)
[2022-07-14 14:01] LABS: Lactate (Lactic Acid) 0.7 mmol/L (0.7-2.1)
[2022-07-14 14:30] VITALS: PULSE 89; O2SAT 100
== END 2022-07-14 17:25 | disposition home or self-care (01) ==
PROVIDERS: Emergency Provider Emergency Medicine; PCP Physician Assistant
DX: K62.5 Hemorrhage of anus and rectum (principal); R42 Dizziness and giddiness
CPT/HCPCS: 36415; 74177; 80053; 81003; 81025; 83605; 83690; 85025; 85610; 85730; 96361; 96374; 96375; 99284; C9113; J2270; J2405; Q9967

== ENCOUNTER → 2025-04-03 13:26 | Outpatient (CLI) | payer OTHER, SELFPAY ==
--- NOTE | 2025-04-03 13:27 | DI.MRI.S_ITS ---
PROCEDURE: MR HIP RT WO CON INDICATIONS: 3y intermittent severe pain, suspect psoas, glut TECHNIQUE: Noncontrast coronal T1 spin echo and STIR through the bony pelvis. Coronal and axial T2 fast spin echo with fat saturation, sagittal T1 spin echo, and oblique axial T2 fast spin echo with fat saturation through the hip. COMPARISON: None. FINDINGS: Image quality: Excellent. Bones and joints: Bone marrow of the pelvic ring and proximal femurs show normal signal throughout. No intraosseous lesions or fractures. No avascular necrosis of the femoral heads. The visualized lower lumbar spine appears normally aligned. Tendons and ligaments: Mild distal right gluteus medius and minimus tendinosis at their insertions on greater trochanter. The nearby proximal iliotibial band also appears intact. The iliopsoas tendon appears intact, without adjacent bursal fluid collections or evidence for impingement syndrome. The origin of the hamstring tendon is intact at the ischial tuberosity. Labrum and cartilage: Subtle fraying of superior anterior right acetabular labrum with T2 hyperintense signal concerning for subtle superior anterior right acetabular labral tear. Cartilage surface of the femoral head appears of normal thickness. Soft tissues: Visualized muscles demonstrate normal bulk and internal signal. Quadratus femoris muscle demonstrates no internal edema to suggest ischiofemoral impingement. The proximal sciatic neurovascular bundle appears normal adjacent to the hamstring tendons. No free pelvic fluid. Bladder wall thickness is normal. Genitourinary structures and bowel loops appear normal where visualized. IMPRESSION: 1. No marrow edema. No pelvic or hip fracture. No evidence of avascular necrosis of femoral head. 2. Mild distal right gluteus medius and minimus tendinosis. No other muscle or tendon signal abnormalities. No abnormal bursal fluid collection. 3. Finding may represent subtle superior anterior right acetabular labral tear. Dictated by: Willie Dennis M.D. on 04/04/2025 at 22:50 Approved by: Willie Dennis M.D. on 04/04/2025 at 23:03
== END ==
PROVIDERS: Referring Provider Family Medicine; Visit Provider Family Medicine
DX: M25.551 Pain in right hip (principal); M62.89 Other specified disorders of muscle; M67.951 Unspecified disorder of synovium and tendon, right thigh; G89.29 Other chronic pain
CPT/HCPCS: 73721